=== PATIENT | male | born 1950 | race Caucasian/White ===

== ENCOUNTER 2019-11-08 03:40 | Inpatient (IN) | payer MEDICARE ==
[~2019-11-08] VITALS: Ht 172.7 cm; Wt 104.1 kg
[2019-11-08] MEDS ORDERED: WARF3TAB50 PO ×2 (05:13)
[2019-11-08] MEDS ORDERED: METF10007 PO (05:13)
[2019-11-08] MEDS ORDERED: CETI10TA16 PO (05:13)
[2019-11-08] MEDS ORDERED: FAMO20TA5 PO (05:13)
[2019-11-08] MEDS ORDERED: WARF2TAB96 PO ×3 (05:13)
[2019-11-08] MEDS ORDERED: METO50TA29 PO (05:13)
[2019-11-08] MEDS ORDERED: FURO40TA4 PO (05:13)
[2019-11-08] MEDS ORDERED: LISI10TA2 PO (05:13)
[2019-11-08] MEDS ORDERED: SIMV40TA18 PO (05:13)
[2019-11-08] MEDS ORDERED: TRIA15CR50 TP (05:13)
[2019-11-08] MEDS ORDERED: ASPI-630 PO (05:13)
[2019-11-08] MEDS ORDERED: GABA-586 PO ×2 (05:13)
[2019-11-08] MEDS ORDERED: OLAN5TAB5 PO (05:38)
[2019-11-08 06:23] VITALS: BP 137/75
[2019-11-08] MEDS ORDERED: METHYL SALICYLATE/MENTHOL TOPICAL OINTMENT 57GM TUBE. TP PRN (06:30)
[2019-11-08] MEDS ORDERED: GABAPENTIN 300 MG CAPSULE. PO PRN (06:30)
[2019-11-08] MEDS ORDERED: ACETAMINOPHEN 325 MG TABLET PO PRN (06:30)
[2019-11-08] MEDS ORDERED: MAGNESIUM HYDROXIDE 2,400 MG/30 ML ORAL.SUSP. PO PRN (06:30)
[2019-11-08] MEDS ORDERED: MAG HYDROX/AL HYDROX/SIMETH 30 ML ORAL.SUSP PO PRN (06:30)
[2019-11-08] MEDS ORDERED: TRIAMCINOLONE ACETONIDE 0.1% TOPICAL CREAM 15GM TUBE. TP PRN (07:15)
[2019-11-08 09:16] VITALS: BP 176/98
[2019-11-08 09:24] LABS: BASO % 1 % (0-3); EOS # 0.2 x10^3/uL (0.0-0.7); EOS % 3 % (0-3); HEMOGLOBIN 14.9 g/dL (13.0-17.5); LYMPH # 0.7 x10^3/uL (1.0-4.8); LYMPH % 11 % (24-48); MEAN CORPUSCULAR HEMOGLOBIN 31 pg (25-35); MEAN CORPUSCULAR HGB CONC 33 g/dL (31-37); MEAN CORPUSCULAR VOLUME 95 fL (79-100); MONO # 0.5 x10^3/uL (0.0-1.1); MONO % 7 % (0-9); NEUT # 5.4 x10^3uL (1.8-7.7); NEUT % 79 % (31-73); PLATELET COUNT 149 x10^3/uL (140-400); RED BLOOD COUNT 4.75 x10^6/uL (4.30-5.70); RED CELL DISTRIBUTION WIDTH 14.5 % (11.5-14.5); WHITE BLOOD COUNT 6.8 x10^3/uL (4.0-11.0)
[2019-11-08] MEDS: METOPROLOL SUCC 24HR ER 50 MG TAB.ER.24H. PO SCH (09:30)
[2019-11-08] MEDS: FAMOTIDINE 20 MG TABLET PO SCH ×2 (09:30→20:42)
[2019-11-08] MEDS: metFORMIN 500 MG TABLET PO SCH ×2 (09:30→17:29)
[2019-11-08] MEDS: GABAPENTIN 300 MG CAPSULE. PO SCH ×4 (09:31→20:42)
[2019-11-08] MEDS: FUROSEMIDE 40 MG TABLET PO SCH (09:31)
[2019-11-08] MEDS: ASPIRIN 81 MG TAB.CHEW PO SCH (09:31)
[2019-11-08] MEDS: CETIRIZINE HCL 10 MG TABLET PO SCH (09:31)
[2019-11-08 09:45] LABS: ALBUMIN 3.5 g/dL (3.4-5.0); ALBUMIN/GLOBULIN RATIO 0.9 (1.0-1.7); CALCIUM 8.5 mg/dL (8.5-10.1); GFR 73.9; MAGNESIUM 1.9 mg/dL (1.8-2.4); POTASSIUM 3.7 mmol/L (3.5-5.1); TOTAL PROTEIN 7.5 g/dL (6.4-8.2)
[2019-11-08 13:17] LABS: THYROID STIM HORMONE (TSH) 2.543 uIU/mL (0.358-3.740)
[2019-11-08] MEDS ORDERED: WARFARIN 3 MG TABLET. PO SCH (16:00)
[2019-11-08] MEDS ORDERED: WARFARIN 5 MG TABLET. PO ONE (16:00)
[2019-11-08 16:08] VITALS: BP 136/92
[2019-11-08] MEDS: LISINOPRIL 10 MG TABLET PO SCH (17:31)
[2019-11-08] MEDS: SIMVASTATIN 40 MG TABLET. PO SCH (20:42)
--- NOTE | 2019-11-08 21:45 | PDOC ---
Exam Note: Mazin Note: Please also refer to the separate dictated note~for this date of service dictated separately. Discussed the patient with Nursing staff reviewed the chart.~Reviewed interim history and current functioning. Reviewed vital signs,~Labs/ Radiology~and current medications noted below. Continue current treatment with the changes noted in the dictated addendum note Assessment: Vital Signs/I&O: Vital Signs Date Time Temp Pulse Resp B/P (MAP) Pulse Ox O2 Delivery O2 Flow Rate FiO2 11/08/19 17:31 85 136/92 11/08/19 16:08 97.6 16 97 I & O 11/07/19 11/07/19 11/08/19 15:00 23:00 07:00 Intake Total 0 ml Balance 0 ml Labs: Laboratory Tests Test 11/08/19 09:09 White Blood Count 6.8 x10^3/uL (4.0-11.0) Red Blood Count 4.75 x10^6/uL (4.30-5.70) Hemoglobin 14.9 g/dL (13.0-17.5) Hematocrit 45.0 % (39.0-53.0) Mean Corpuscular Volume 95 fL (79-100) Mean Corpuscular Hemoglobin 31 pg (25-35) Mean Corpuscular Hemoglobin Concent 33 g/dL (31-37) Red Cell Distribution Width 14.5 % (11.5-14.5) Platelet Count 149 x10^3/uL (140-400) Neutrophils (%) (Auto) 79 % (31-73) H Lymphocytes (%) (Auto) 11 % (24-48) L Monocytes (%) (Auto) 7 % (0-9) Eosinophils (%) (Auto) 3 % (0-3) Basophils (%) (Auto) 1 % (0-3) Neutrophils # (Auto) 5.4 x10^3uL (1.8-7.7) Lymphocytes # (Auto) 0.7 x10^3/uL (1.0-4.8) L Monocytes # (Auto) 0.5 x10^3/uL (0.0-1.1) Eosinophils # (Auto) 0.2 x10^3/uL (0.0-0.7) Basophils # (Auto) 0.0 x10^3/uL (0.0-0.2) Prothrombin Time 11.6 SEC (9.4-11.4) H Prothrombin Time INR 1.1 (0.9-1.1) Sodium Level 141 mmol/L (136-145) Potassium Level 3.7 mmol/L (3.5-5.1) Chloride Level 103 mmol/L (98-107) Carbon Dioxide Level 27 mmol/L (21-32) Anion Gap 11 (6-14) Blood Urea Nitrogen 18 mg/dL (8-26) Creatinine 1.0 mg/dL (0.7-1.3) Estimated GFR (Cockcroft-Gault) 73.9 BUN/Creatinine Ratio 18 (6-20) Glucose Level 222 mg/dL (70-99) H Calcium Level 8.5 mg/dL (8.5-10.1) Magnesium Level 1.9 mg/dL (1.8-2.4) Iron Level 72 ug/dL (65-175) Total Iron Binding Capacity 274 ug/dL (250-450) Iron Saturation 26 % (15-34) Total Bilirubin 1.0 mg/dL (0.2-1.0) Aspartate Amino Transferase (AST) 25 U/L (15-37) Alanine Aminotransferase (ALT) 23 U/L (16-63) Alkaline Phosphatase 97 U/L (46-116) Total Protein 7.5 g/dL (6.4-8.2) Albumin 3.5 g/dL (3.4-5.0) Albumin/Globulin Ratio 0.9 (1.0-1.7) L Triglycerides Level 57 mg/dL (0-150) Cholesterol Level 124 mg/dL (0-200) LDL Cholesterol, Calculated 71 mg/dL (0-100) VLDL Cholesterol, Calculated 11 mg/dL (0-40) Non-HDL Cholesterol Calculated 82 mg/dL (0-129) HDL Cholesterol 42 mg/dL (40-60) Cholesterol/HDL Ratio 2.0 Vitamin B12 Level 298 pg/mL (247-911) 25-Hydroxy Vitamin D Total 28.6 ng/mL (30-100) L Thyroid Stimulating Hormone (TSH) 2.543 uIU/mL (0.358-3.740) Treponema pallidum Antibody Nonreactive (Nonreactive) Current Medications: Meds: Current Medications Medications (Trade) Dose Ordered Sig/Svetlana Route PRN Reason Start Time Stop Time Status Last Admin Dose Admin Aspirin (Children'S Aspirin) 81 mg DAILY PO 11/08/19 09:00 11/08/19 09:31 Cetirizine HCl (ZyrTEC) 10 mg DAILY PO 11/08/19 09:00 11/08/19 09:31 Famotidine (Pepcid) 20 mg BID PO 11/08/19 09:00 11/08/19 20:42 Furosemide (Lasix) 40 mg DAILY PO 11/08/19 09:00 11/08/19 09:31 Gabapentin (Neurontin) 300 mg QID PO 11/08/19 09:00 11/08/19 20:42 Lisinopril (Prinivil) 10 mg DAILYWSUP PO 11/08/19 17:00 11/08/19 17:31 Metoprolol Succinate (Toprol Xl) 50 mg DAILY PO 11/08/19 09:00 11/08/19 09:30 Simvastatin (Zocor) 40 mg HS PO 11/08/19 21:00 11/08/19 20:42 Metformin HCl (Glucophage) 1,000 mg BIDWMEALS PO 11/08/19 08:00 11/08/19 17:29 Warfarin Sodium (Coumadin Per Pharmacy) 1 each PRN DAILY PRN MC SEE COMMENTS 11/08/19 06:30 11/08/19 14:03 Warfarin Sodium (Coumadin) 5 mg 1X WARF ONCE PO 11/08/19 16:00 11/08/19 16:01 DC 11/08/19 17:30 I have reviewed the current psychotropics carefully including drug interactions. Risk benefit ratio favors no change other than as noted in my dictated progress note. Diagnosis: Problems: (1) Anxiety disorder (2) Psychosis, atypical (3) Impulse control disorder MARIANN CUEVAS MD Nov 08, 2019 21:45
[2019-11-08 23:07] LABS: HEMOGLOBIN A1C 7.3 % (4.8-5.6)
--- NOTE | 2019-11-09 01:24 | CONS ---
DATE OF CONSULTATION: 11/08/2019 REASON FOR CONSULTATION: Medical management. HISTORY OF PRESENT ILLNESS: The patient is a 69-year-old male patient who lives at home and who was evaluated at [facility] Emergency Room on account of destroying his house. He broke his window and threw things into his yard. He told his friend, he gets these urges and when I questioned him is that the demons were somehow influencing him. He however, denied any suicidal or homicidal ideation; however, he was unable to be specific about what has led him to do this other than the fact that his house has been possessed by demons. He apparently has had a gun and apparently has had suicidal ideation before and therefore, the patient was evaluated and [facility] inpatient psychiatric stabilization. PAST MEDICAL HISTORY: Significant for hypertension and hyperlipidemia. He is known to have history of cerebrovascular accident, heart failure with reduced ejection fraction, class 2 obesity due to excessive calories, body mass index 36-39. He is also known to have type 2 diabetes with diabetic neuropathy, and bilateral lower extremity venous stasis. PAST SURGICAL HISTORY: Significant for suprapubic cystostomy and had cystoscopy with suprapubic cystostomy tube placement and transurethral resection of the prostate, cardiac catheterization. The patient was found to have moderate coronary artery disease with a high-grade 80% stenosis of the mid left anterior descending. Biopsy of the prostate and transrectal ultrasound. FAMILY HISTORY: Noncontributory. SOCIAL HISTORY: He is single, never , has no children. He does not smoke, does not drink alcohol. He is retired. 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 ALLERGIES: He has no known drug allergies. MEDICATIONS: He is currently on following medications: He is on cetirizine 10 mg once a day. He is on Coumadin 2 mg every , Thursday, Thursday and 3 mg every Thursday, Thursday, Thursday and 3 mg every Thursday, simvastatin 40 mg at bedtime, metoprolol succinate 50 mg once a day, lisinopril 10 mg once a day, aspirin 81 mg once a day, gabapentin 300 mg 4 times a day, olanzapine 2.5 mg every 2 hours as needed, furosemide 40 mg once a day, famotidine 20 mg twice a day, metformin 1000 mg twice a day, triamcinolone acetonide cream applied topically twice a day. He is also on Tylenol 650 mg every 4 hours as needed. REVIEW OF SYSTEMS: As per history of present illness. PHYSICAL EXAMINATION GENERAL: When I saw him this afternoon, he was sitting comfortably in his chair, in no apparent respiratory distress. There was no pallor, jaundice, cyanosis or thyromegaly. No jugular venous distention. No limb edema. VITAL SIGNS: His heart rate was 81, blood pressure was 137/75, temperature 97, respiratory rate was 18, and oxygen saturation 100% on room air. The rest of the clinical exam is unremarkable. LABORATORY DATA: Showed a white cell count 6800, hemoglobin 14.9, hematocrit 45, MCV 95, and platelet count of 149,000. His chemistry showed a serum sodium 141, potassium 3.7, chloride 103, bicarbonate 27, anion gap of 11, BUN 18, creatinine 1, estimated GFR was 74 mL per minute. His glucose was 122, calcium was 8.5, and magnesium was 1.9. Serum iron, TIBC and iron saturation are all consistent with anemia of chronic disease. Her total bilirubin, AST, ALT, alkaline phosphatase were normal. Total protein is 7.5 and albumin 3.5. Serum triglycerides were 57, total cholesterol 124, LDL cholesterol 71, VLDL was 11, HDL was 42 and the ratio 2. His vitamin B12 was 298 pg/mL. 25-hydroxy vitamin D is 28.6 and TSH was normal at 2.543. Her prothrombin time was 11.6, INR 1.1 and treponema pallidum antibodies were nonreactive. IMPRESSION: In summary, this is a 69-year-old male patient who was admitted on account of being delusional, psychotic. His friend brought him back to the Emergency Room as he broke his window, threw his belonging out through the window. He reportedly seeing and hearing the devil although he denied any suicidal or homicidal ideation. He said that the demons have somehow are influencing him, although indirectly, not talking to him directly. He apparently has multiple medical problems including chronic systolic congestive heart failure, history of cerebrovascular accident, hypertension, chronic bilateral lower extremity venous stasis, type 2 diabetes mellitus, diabetic neuropathy. He has enlarged prostate. He has also had overweight. Medically, the patient seems to be all in all stable. All his vital signs are within acceptable range as well as lab work. His vitamin D is low, so will replenish that and his vitamin B12, also borderline low at 198. I will obviously follow all his other lab works that are still pending at the time of this dictation and make any necessary recommendation. Thank you, Dr. Baum for allowing me to participate in the care of this patient. RAINE HSU MD DR: PAMELA/sofía JOB#: [id number] / [id number]
[2019-11-09 06:22] VITALS: BP 140/79
--- NOTE | 2019-11-09 09:47 | HP ---
ADMIT DATE: 11/08/2019 ADMISSION HISTORY AND EVALUATION This late entry date of service 11/08/2019 covers elements not covered in my initial note. I met with the patient evening of 11/08/2019. Previously discussed with Mitzy Humphreys, nursing information systems coordinator and Sunshine Smith RN after we received a referral from Emergency Room where the patient presented from home on account of worsening psychotic symptoms, agitation "throwing things, breaking windows, seeing demons delusional." He was convinced that his house was possessed. The patient's behaviors were deemed dangerous, unmanageable, had failed outpatient psychiatric interventions resulting in this referral. CHIEF COMPLAINT: "Yes, that happen, but I don't want to talk about it just now." The patient is anxious, very defensive initially refusing to talk whatsoever, but as we met over time, he was a little more open. I will have to develop further therapeutic relationship with him to elucidate more detail psychotic symptoms that resulting in this referral. HISTORY OF PRESENT ILLNESS: Reportedly, the patient has a history of worsening psychotic symptoms recently with mood swings, sleep and appetite changes, agitation, aggression, throwing things, breaking window, seeing demons, convinced that his house is possessed. He has been living by himself. He is single, never , with no children and denies any alcohol or substance abuse. He has had mood swings, worsening lately over the past several days for no apparent reason. PAST PSYCHIATRIC HISTORY: He was at [facility] many years ago and he was not very forthcoming about interim symptoms since then and outpatient followup for psychiatric reasons since then. No alcohol or drug abuse history noted. MEDICAL HISTORY: Positive for status post CVA, hypertension, bilateral lower extremity lymphedema, hyperlipidemia, type 2 diabetes mellitus, neuropathy, venous stasis, CHF, hematuria. ACCU-CHEKS: Daily. DIET: Regular. Takes medications whole, ambulates independently. ALLERGIES: Negative. CODE STATUS: Full code. CURRENT PSYCHOTROPICS: I had added Zyprexa 2.5 mg q. 2 hours p.r.n. psychosis, agitation following admission, max 10 mg in 24 hours. Still we can get background historical information and records from [facility]. He is also on Coumadin. PT/INR to be followed by pharmacy. FAMILY HISTORY: Noncontributory. 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 No alcohol or drug abuse, physical, sexual or elder abuse history is noted. He is not known to be a perpetrator. REACTION TO HOSPITALIZATION: The patient accepting of it. ASSETS: Cognitively reasonably intact. MENTAL STATUS EXAMINATION: The patient was seen individually evening of 11/08/2019 in his room. Initially he is extremely dismissive, anxious, delusional, suspicious, not wanting to talk very much, but then more open as I met with him. Speech is coherent, has some latency, rapid at times. Abstraction fair, computation impaired, language function intact, attention span short. He is quite paranoid, suspicious, withdrawn at times. No active suicidal or homicidal ideation. LABORATORY DATA: Reviewed. IMPRESSION: Major depressive disorder with psychotic features versus bipolar disorder, mixed with psychotic features. Psychotic disorder, unspecified, rule out schizoaffective disorder, bipolar type, mixed with psychotic features. Rest diagnoses as above. PLAN: Admit to Geropsychiatry Unit at [facility]. I will see the patient daily individually from a psychiatric standpoint. Medical followup with Dr. Chapin. We will get past psychiatric records from [facility] and any of the interim psychiatric records including from the [facility] in [place] and his primary care physician to corroborate his diagnosis and help with further treatment planning. We will adjust his psychotropics thereafter and post baseline assessment. Estimated length of stay 10-12 days. DISPOSITION: Plans discharge home with outpatient followup at [facility] in [place], [place]. MAN Juliette CUEVAS MD DR: DEEDEE/sofía JOB#: [id number] / [id number]
[2019-11-09] MEDS: FAMOTIDINE 20 MG TABLET PO SCH ×2 (09:57→20:39)
[2019-11-09] MEDS: metFORMIN 500 MG TABLET PO SCH ×2 (09:58→17:48)
[2019-11-09] MEDS: GABAPENTIN 300 MG CAPSULE. PO SCH ×4 (09:58→20:40)
[2019-11-09] MEDS: METOPROLOL SUCC 24HR ER 50 MG TAB.ER.24H. PO SCH (09:58)
[2019-11-09] MEDS: FUROSEMIDE 40 MG TABLET PO SCH (09:58)
[2019-11-09] MEDS: ASPIRIN 81 MG TAB.CHEW PO SCH (09:58)
[2019-11-09] MEDS: CETIRIZINE HCL 10 MG TABLET PO SCH (09:59)
[2019-11-09] MEDS: CHOLECALCIFEROL (VITAMIN D3) 50,000 UNIT CAPSULE PO SCH (09:59)
[2019-11-09 15:44] VITALS: BP 98/67
[2019-11-09] MEDS ORDERED: WARFARIN 5 MG TABLET. PO ONE (16:00)
[2019-11-09] MEDS ORDERED: WARFARIN 3 MG TABLET. PO SCH (16:00)
[2019-11-09] MEDS ORDERED: WARFARIN 2 MG TABLET. PO SCH (16:00)
[2019-11-09] MEDS ORDERED: CHOLECALCIFEROL (VITAMIN D3) 50,000 UNIT CAPSULE PO SCH (16:15)
[2019-11-09] MEDS: LISINOPRIL 10 MG TABLET PO SCH (17:49)
--- NOTE | 2019-11-09 18:36 | RAD ---
CT head without contrast PQRS statement: CT scans at this facility use dose reduction including either automated exposure control, iterative reconstructions, and /or weight based radiation dosing via mA and kV modification when appropriate to reduce radiation dose to as low as reasonably achievable. HISTORY: Mental status change. Altered mental status. FINDINGS: There is mild generalized brain atrophy. No intracranial hemorrhage, mass, hydrocephalus or infarction. No acute ischemic change evident. Orbits, mastoids, paranasal sinuses and bones are unremarkable. IMPRESSION: No acute abnormality. Electronically signed by: Uriel Mayen MD (11/09/2019 6:33 PM) [id number]
[2019-11-09] MEDS: SIMVASTATIN 40 MG TABLET. PO SCH (20:39)
--- NOTE | 2019-11-09 21:58 | PDOC ---
Exam Note: Mazin Note: Please also refer to the separate dictated note~for this date of service dictated separately.~Patient seen individually. Discussed the patient with Nursing staff reviewed the chart.~Reviewed interim history and current functioning. Reviewed vital signs,~Labs/ Radiology~and current medications noted below. Continue current treatment with the changes noted in the dictated addendum note Assessment: Vital Signs/I&O: Vital Signs Date Time Temp Pulse Resp B/P (MAP) Pulse Ox O2 Delivery O2 Flow Rate FiO2 11/09/19 17:49 82 98/67 11/09/19 15:44 97.6 16 94 I & O 11/08/19 11/08/19 11/09/19 15:00 23:00 07:00 Intake Total 840 ml 120 ml Balance 840 ml 120 ml Labs: Laboratory Tests Test 11/09/19 08:55 Prothrombin Time 12.4 SEC (9.4-11.4) H Prothrombin Time INR 1.2 (0.9-1.1) H Current Medications: Meds: Current Medications Medications (Trade) Dose Ordered Sig/Svetlana Route PRN Reason Start Time Stop Time Status Last Admin Dose Admin Vitamin D (Vitamin D3) 50,000 unit WEEKLY PO 11/09/19 09:00 11/09/19 09:59 Warfarin Sodium (Coumadin) 5 mg 1X WARF ONCE PO 11/09/19 16:00 11/09/19 16:01 DC 11/09/19 17:48 I have reviewed the current psychotropics carefully including drug interactions. Risk benefit ratio favors no change other than as noted in my dictated progress note. Diagnosis: Problems: (1) Anxiety disorder (2) Psychosis, atypical (3) Impulse control disorder (4) Bipolar disorder with psychotic features (5) Major depressive disorder with psychotic features MARIANN CUEVAS MD Nov 09, 2019 21:58
[2019-11-10] MEDS: traZODone 50 MG TABLET. PO PRN ×2 (01:51→19:51)
[2019-11-10] MEDS: CETIRIZINE HCL 10 MG TABLET PO SCH (09:01)
[2019-11-10] MEDS: GABAPENTIN 300 MG CAPSULE. PO SCH ×4 (09:01→19:52)
[2019-11-10] MEDS: ASPIRIN 81 MG TAB.CHEW PO SCH (09:01)
[2019-11-10] MEDS: FAMOTIDINE 20 MG TABLET PO SCH ×2 (09:01→19:52)
[2019-11-10] MEDS: metFORMIN 500 MG TABLET PO SCH ×2 (09:01→16:53)
[2019-11-10] MEDS: METOPROLOL SUCC 24HR ER 50 MG TAB.ER.24H. PO SCH (09:02)
[2019-11-10] MEDS: FUROSEMIDE 40 MG TABLET PO SCH (09:02)
[2019-11-10] MEDS: ZIPRASIDONE 20 MG CAPSULE. PO SCH (09:17)
[2019-11-10 09:38] VITALS: BP 103/58
[2019-11-10] MEDS ORDERED: WARFARIN 5 MG TABLET. PO ONE (16:00)
[2019-11-10] MEDS ORDERED: WARFARIN 2 MG TABLET. PO SCH (16:00)
[2019-11-10 16:39] VITALS: BP 127/85
[2019-11-10] MEDS: LISINOPRIL 10 MG TABLET PO SCH (16:53)
[2019-11-10] MEDS: SIMVASTATIN 40 MG TABLET. PO SCH (19:52)
--- NOTE | 2019-11-10 21:48 | PDOC ---
Exam Note: Mazin Note: Please also refer to the separate dictated note~for this date of service dictated separately.~Patient seen individually. Discussed the patient with Nursing staff reviewed the chart.~Reviewed interim history and current functioning. Reviewed vital signs,~Labs/ Radiology~and current medications noted below. Continue current treatment with the changes noted in the dictated addendum note Assessment: Vital Signs/I&O: Vital Signs Date Time Temp Pulse Resp B/P (MAP) Pulse Ox O2 Delivery O2 Flow Rate FiO2 11/10/19 16:53 84 127/85 11/10/19 16:39 97.7 18 98 I & O 11/09/19 11/09/19 11/10/19 15:00 23:00 07:00 Intake Total 480 ml 360 ml Balance 480 ml 360 ml Labs: Laboratory Tests Test 11/10/19 07:02 Prothrombin Time 14.4 SEC (9.4-11.4) H Prothrombin Time INR 1.4 (0.9-1.1) H Current Medications: Meds: Current Medications Medications (Trade) Dose Ordered Sig/Svetlana Route PRN Reason Start Time Stop Time Status Last Admin Dose Admin Ziprasidone (Geodon) 20 mg DAILY PO 11/10/19 09:00 11/11/19 09:01 11/10/19 09:17 Warfarin Sodium (Coumadin) 5 mg 1X WARF ONCE PO 11/10/19 16:00 11/10/19 16:01 DC 11/10/19 16:53 I have reviewed the current psychotropics carefully including drug interactions. Risk benefit ratio favors no change other than as noted in my dictated progress note. Diagnosis: Problems: (1) Major depress, sev w/ psych (2) Bipolar disorder with psychotic features (3) Major depressive disorder with psychotic features (4) Anxiety disorder (5) Psychosis, atypical (6) Impulse control disorder MARIANN CUEVAS MD Nov 10, 2019 21:48
[2019-11-11 05:04] VITALS: BP 127/82
[2019-11-11] MEDS: FUROSEMIDE 40 MG TABLET PO SCH (07:57)
[2019-11-11] MEDS: metFORMIN 500 MG TABLET PO SCH ×2 (07:57→17:40)
[2019-11-11] MEDS: METOPROLOL SUCC 24HR ER 50 MG TAB.ER.24H. PO SCH (07:57)
[2019-11-11] MEDS: ASPIRIN 81 MG TAB.CHEW PO SCH (07:57)
[2019-11-11] MEDS: CETIRIZINE HCL 10 MG TABLET PO SCH (07:57)
[2019-11-11] MEDS: GABAPENTIN 300 MG CAPSULE. PO SCH ×4 (07:58→21:00)
[2019-11-11] MEDS: FAMOTIDINE 20 MG TABLET PO SCH ×2 (07:58→21:00)
[2019-11-11] MEDS: ZIPRASIDONE 20 MG CAPSULE. PO SCH (07:58)
[2019-11-11 15:49] VITALS: BP 127/80
[2019-11-11] MEDS ORDERED: WARFARIN 3 MG TABLET. PO ONE (16:00)
[2019-11-11] MEDS: LISINOPRIL 10 MG TABLET PO SCH (17:39)
[2019-11-11] MEDS: SIMVASTATIN 40 MG TABLET. PO SCH (21:00)
[2019-11-11] MEDS: MIRTAZAPINE 7.5 MG TABLET. PO SCH (21:00)
[2019-11-11] MEDS: traZODone 50 MG TABLET. PO PRN (21:01)
[2019-11-11] MEDS: DIVALPROEX ER 500 MG TAB.ER.24H PO SCH (21:01)
--- NOTE | 2019-11-11 21:33 | PDOC ---
Exam Note: Mazin Note: Please also refer to the separate dictated note~for this date of service dictated separately.~Patient seen individually. Discussed the patient with Nursing staff reviewed the chart.~Reviewed interim history and current functioning. Reviewed vital signs,~Labs/ Radiology~and current medications noted below. Continue current treatment with the changes noted in the dictated addendum note Assessment: Vital Signs/I&O: Vital Signs Date Time Temp Pulse Resp B/P (MAP) Pulse Ox O2 Delivery O2 Flow Rate FiO2 11/11/19 17:39 92 127/80 11/11/19 15:49 97.7 18 100 11/11/19 05:04 Room Air I & O 11/10/19 11/10/19 11/11/19 15:00 23:00 07:00 Intake Total 720 ml 0 ml 120 ml Balance 720 ml 0 ml 120 ml Labs: Laboratory Tests Test 11/11/19 06:55 Prothrombin Time 18.3 SEC (9.4-11.4) H Prothrombin Time INR 1.8 (0.9-1.1) H Current Medications: Meds: Current Medications Medications (Trade) Dose Ordered Sig/Svetlana Route PRN Reason Start Time Stop Time Status Last Admin Dose Admin Warfarin Sodium (Coumadin) 3 mg 1X WARF ONCE PO 11/11/19 16:00 11/11/19 16:01 DC 11/11/19 17:40 Divalproex Sodium (Depakote Er) 500 mg QHS PO 11/11/19 21:00 11/11/19 21:01 Mirtazapine (Remeron) 7.5 mg QHS PO 11/11/19 21:00 11/11/19 21:00 I have reviewed the current psychotropics carefully including drug interactions. Risk benefit ratio favors no change other than as noted in my dictated progress note. Diagnosis: Problems: (1) Major depress, sev w/ psych (2) Bipolar disorder with psychotic features (3) Major depressive disorder with psychotic features (4) Anxiety disorder (5) Psychosis, atypical (6) Impulse control disorder MARIANN CUEVAS MD Nov 11, 2019 21:33
--- NOTE | 2019-11-11 23:47 | PN ---
DATE: 11/09/2019 PSYCHIATRIC PROGRESS NOTE This late entry of 11/09/2019 covers the elements not covered in my initial note. SUBJECTIVE: I met with the patient at length in the evening of 11/09/2019. Per BENITA Hampton, the patient has been very paranoid. He slept 4 hours previous night. He was making statements, "I know who you are. I need my operation done. Otherwise, shit is going to go down." Reportedly, he threw his food, he has been agitated, aggressive with marked mood lability. He threw his food at breakfast and lunch, refused showers the day before. 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 We will check a CT head and get his records from [facility] and from [facility] at the [facility]. REVIEW OF SYSTEMS: No CV, , pulmonary, eye, ENT system symptoms on review. Reliability poor as he is quite nonspecific in answering questions. MENTAL STATUS EXAM: Oriented to himself and situation. Speech coherent, rapid, loud at times. Abstraction fair, computation impaired, language function intact, attention span short. Mood and affect remains labile. He is quite paranoid. IMPRESSION: Probable schizoaffective disorder, bipolar type, mixed with psychotic features versus schizophrenia, chronic, undifferentiated versus paranoid with acute exacerbation; anxiety disorder, unspecified; impulse control disorder, unspecified. PLAN: Start Geodon 20 mg once a day for 2 days, then 20 mg twice a day. Check EKG before this. Check CT head as noted. Add trazodone 50 mg at bedtime p.r.n., may repeat x 1 for insomnia. Continue rest unchanged for now. He has a history of CVA and that is why we are avoiding Risperdal despite his significant psychotic symptoms. MARIANN CUEVAS MD DR: DEEDEE/sofía JOB#: [id number] / [id number]
[2019-11-12] MEDS: metFORMIN 500 MG TABLET PO SCH ×2 (08:00→17:40)
[2019-11-12] MEDS: FAMOTIDINE 20 MG TABLET PO SCH ×2 (09:00→19:58)
[2019-11-12] MEDS: METOPROLOL SUCC 24HR ER 50 MG TAB.ER.24H. PO SCH (09:00)
[2019-11-12] MEDS: ZIPRASIDONE 20 MG CAPSULE. PO SCH ×2 (09:00→19:58)
[2019-11-12] MEDS: GABAPENTIN 300 MG CAPSULE. PO SCH ×4 (09:00→19:58)
[2019-11-12] MEDS: ASPIRIN 81 MG TAB.CHEW PO SCH (09:00)
[2019-11-12] MEDS: FUROSEMIDE 40 MG TABLET PO SCH (09:00)
[2019-11-12] MEDS: CETIRIZINE HCL 10 MG TABLET PO SCH (09:00)
--- NOTE | 2019-11-12 09:09 | PN ---
DATE: 11/11/2019 This late entry 11/11/2019 covers elements not covered in my initial note. SUBJECTIVE: I met with the patient evening of 11/11/2019. The patient slept 2 hours previous night. He has had a decent day per nursing staff, but in the evening, he was in the [facility], which is where I met with him. He is extremely agitated, had tripped over a very heavy chair and as I was talking to him and he pulled the papers out of my hand including the nursing report sheet, threw them all over "you don?t need it, get out." Quite labile, aggressive. He threw his supper and then threw his glasses and then in the morning, was chanting that demons were controlling him. REVIEW OF SYSTEMS: Vague somatic symptoms. No CV, , pulmonary, eye system symptoms on review. MENTAL STATUS EXAM: Oriented to himself and situation. Speech coherent, rapid at times. Abstraction fair, computation impaired, language function intact, attention span short. Mood and affect labile. LABORATORY DATA: Reviewed. IMPRESSION: Schizoaffective disorder, bipolar type, mixed with psychotic features versus schizophrenia, chronic paranoid with acute exacerbation; anxiety disorder, unspecified; impulse control disorder, unspecified. PLAN: We had a lengthy review of his psychotropics. We will continue to gradually increase the Geodon. Maintain Zyprexa p.r.n., use Remeron 7.5 mg at bedtime to help with insomnia. Continue trazodone at bedtime p.r.n. Start Depakote ER 500 mg p.o. at bedtime as a mood stabilizer. Check CBC, CMP, valproic acid level in 3 days. MAN Juliette CUEVAS MD DR: DEEDEE/sofía JOB#: [id number] / [id number]
--- NOTE | 2019-11-12 09:11 | PN ---
DATE: 11/10/2019 PSYCHIATRIC PROGRESS NOTE This late entry 11/10/2019 covers the elements not covered in my initial note. SUBJECTIVE: I met with the patient evening of 11/10/2019 and staffed at treatment team meeting with the entire team in the morning. Reviewed his history at length. Sleeping 2 hours average 3-1/4 hours previous night. Previous evening, he was agitated, aggressive, disruptive, threw his walker and then the water on the floor, talking about demons controlling him. He has to be in the [place] to reduce stimuli prevent him hurting others and himself. REVIEW OF SYSTEMS: No CV, , pulmonary, eye, ENT system symptoms on review. MENTAL STATUS EXAM: Oriented to himself and situation. Speech coherent, rapid at times. Abstraction fair, computation impaired, language function intact. Mood and affect remains labile. LABORATORY DATA: Reviewed. IMPRESSION: Schizophrenia, chronic paranoid with acute exacerbation, impulse control disorder; anxiety disorder, unspecified. PLAN: Continue to gradually increase the Geodon as an atypical antipsychotic, may consider Depakote as a mood stabilizer. A CT head is negative. He refused the EKG, we will repeat it whenever we are able to, rest unchanged for now. EKG is being done as he is on the Geodon. MARIANN CUEVAS MD DR: DEEDEE/sofía JOB#: [id number] / [id number]
[2019-11-12 13:55] VITALS: BP 114/72
[2019-11-12] MEDS ORDERED: WARFARIN 2.5 MG TABLET. PO ONE (16:00)
[2019-11-12 16:33] VITALS: BP 106/74
[2019-11-12] MEDS: LISINOPRIL 10 MG TABLET PO SCH (17:41)
[2019-11-12] MEDS: SIMVASTATIN 40 MG TABLET. PO SCH (19:58)
[2019-11-12] MEDS: traZODone 50 MG TABLET. PO PRN ×2 (19:58→21:42)
[2019-11-12] MEDS: DIVALPROEX ER 500 MG TAB.ER.24H PO SCH (19:58)
[2019-11-12] MEDS: MIRTAZAPINE 7.5 MG TABLET. PO SCH (19:58)
--- NOTE | 2019-11-12 21:37 | PN ---
DATE: 11/12/2019 SUBJECTIVE: The patient was seen today, met with the staff, chart reviewed and also covering for Dr. Baum. Staff reports increased behavior problems. He continues to be irritable, angry, mood swings, history of destruction of property prior to coming here and also being delusional, paranoid, and having visual hallucinations. OBSERVATION: VITAL SIGNS: Temperature 97.6, blood pressure 114/72, pulse 80, respirations 20, and O2 sat 100%. GENERAL: Slept about 7 hours last night. The patient's appetite is normal. LABORATORY DATA: The patient's lab reviewed. MEDICATIONS: The patient's current medications include Geodon 20 mg twice a day, mirtazapine 7.5 mg at night, Depakote 500 mg at night, trazodone 50 mg at night p.r.n., also olanzapine 2.5 mg q.2 hours p.r.n., gabapentin 300 mg q.i.d. The patient is not presenting with any major physical complaints at this time. ASSESSMENT: Major depression with psychotic features, rule out schizoaffective disorder, bipolar type. PLAN: Continue with the current treatment plan. LENGTH OF STAY: 5 days. BENY MILAN MD DR: KADY/sofía JOB#: [id number] / [id number]
[2019-11-13 05:33] VITALS: BP 92/59
[2019-11-13] MEDS: ZIPRASIDONE 20 MG CAPSULE. PO SCH ×2 (08:36→19:56)
[2019-11-13] MEDS: metFORMIN 500 MG TABLET PO SCH ×2 (08:36→17:42)
[2019-11-13] MEDS: ASPIRIN 81 MG TAB.CHEW PO SCH (08:36)
[2019-11-13] MEDS: CETIRIZINE HCL 10 MG TABLET PO SCH (08:37)
[2019-11-13] MEDS: METOPROLOL SUCC 24HR ER 50 MG TAB.ER.24H. PO SCH (08:37)
[2019-11-13] MEDS: GABAPENTIN 300 MG CAPSULE. PO SCH ×4 (08:38→19:56)
[2019-11-13] MEDS: NYSTATIN TOPICAL POWDER 15GM BOTTLE. TP SCH ×2 (08:38→19:56)
[2019-11-13] MEDS: FUROSEMIDE 40 MG TABLET PO SCH (08:38)
[2019-11-13] MEDS: FAMOTIDINE 20 MG TABLET PO SCH ×2 (08:38→19:56)
[2019-11-13 15:53] VITALS: BP 138/74
[2019-11-13] MEDS ORDERED: WARFARIN 2 MG TABLET. PO SCH (16:00)
[2019-11-13] MEDS: LISINOPRIL 10 MG TABLET PO SCH (17:43)
[2019-11-13] MEDS: AMMONIUM LACTATE 12% TOPICAL LOTION 226GM BOTTLE. TP SCH (19:56)
[2019-11-13] MEDS: traZODone 50 MG TABLET. PO PRN (19:56)
[2019-11-13] MEDS: DIVALPROEX ER 500 MG TAB.ER.24H PO SCH (19:56)
[2019-11-13] MEDS: SIMVASTATIN 40 MG TABLET. PO SCH (19:56)
[2019-11-13] MEDS: MIRTAZAPINE 7.5 MG TABLET. PO SCH (19:56)
--- NOTE | 2019-11-13 23:31 | PN ---
DATE: 11/13/2019 SUBJECTIVE: The patient was seen today, met with the staff, chart reviewed and also covering for Dr. Baum. Staff reports episodes of increased anxiety, agitation, also poor impulse control, threw med cup and water last evening. Otherwise, no other major behavior problems. The patient is compliant with the medications. OBSERVATION: VITAL SIGNS: Temperature 97.4, blood pressure 92/59, pulse 72, respirations 20, O2 sat 96%. Slept about 2 hours last night. The patient's medications reviewed. GENERAL: The patient's appetite is normal. The patient denies of any physical complaints. MEDICATIONS: The patient's current medications include Geodon 20 mg b.i.d. p.o., mirtazapine 7.5 mg at night, Depakote 500 mg at night, trazodone 50 mg at night p.r.n. and also olanzapine 2.5 mg q. 2 hours p.r.n. The patient is also on gabapentin 300 mg q.i.d. p.o. ASSESSMENT: 1. Major depression with psychotic features. 2. Rule out schizoaffective disorder, bipolar type. PLAN: Continue with the current treatment plan. LENGTH OF STAY: 4-5 days. BENY MILAN MD DR: KADY/sofía JOB#: [id number] / [id number]
[2019-11-14 06:02] VITALS: BP 113/68
[2019-11-14 07:40] LABS: BASO # 0.1 x10^3/uL (0.0-0.2); BASO % 1 % (0-3); EOS # 0.3 x10^3/uL (0.0-0.7); EOS % 5 % (0-3); HEMATOCRIT 41.4 % (39.0-53.0); HEMOGLOBIN 13.7 g/dL (13.0-17.5); LYMPH # 1.1 x10^3/uL (1.0-4.8); LYMPH % 17 % (24-48); MEAN CORPUSCULAR HEMOGLOBIN 31 pg (25-35); MEAN CORPUSCULAR HGB CONC 33 g/dL (31-37); MEAN CORPUSCULAR VOLUME 94 fL (79-100); MONO # 0.6 x10^3/uL (0.0-1.1); MONO % 10 % (0-9); NEUT # 4.5 x10^3uL (1.8-7.7); NEUT % 68 % (31-73); PLATELET COUNT 163 x10^3/uL (140-400); RED CELL DISTRIBUTION WIDTH 14.9 % (11.5-14.5); WHITE BLOOD COUNT 6.6 x10^3/uL (4.0-11.0)
[2019-11-14 08:00] LABS: ALBUMIN 2.9 g/dL (3.4-5.0); ALBUMIN/GLOBULIN RATIO 0.8 (1.0-1.7); ALK PHOS 80 U/L (46-116); ALT (SGPT) 17 U/L (16-63); ANION GAP 10 (6-14); AST (SGOT) 16 U/L (15-37); BLOOD UREA NITROGEN 32 mg/dL (8-26); BUN/CREATININE RATIO 23 (6-20); CALCIUM 8.3 mg/dL (8.5-10.1); CARBON DIOXIDE 28 mmol/L (21-32); CHLORIDE 106 mmol/L (98-107); CREATININE 1.4 mg/dL (0.7-1.3); GFR 50.1; GLUCOSE 128 mg/dL (70-99); SODIUM 144 mmol/L (136-145); TOTAL BILIRUBIN 0.3 mg/dL (0.2-1.0); TOTAL PROTEIN 6.4 g/dL (6.4-8.2)
[2019-11-14 08:09] LABS: VAL ACID 28 mcg/mL (50-100)
[2019-11-14] MEDS: FAMOTIDINE 20 MG TABLET PO SCH ×2 (08:12→20:12)
[2019-11-14] MEDS: FUROSEMIDE 40 MG TABLET PO SCH (08:13)
[2019-11-14] MEDS: ASPIRIN 81 MG TAB.CHEW PO SCH (08:13)
[2019-11-14] MEDS: metFORMIN 500 MG TABLET PO SCH ×2 (08:13→16:08)
[2019-11-14] MEDS: CETIRIZINE HCL 10 MG TABLET PO SCH (08:13)
[2019-11-14] MEDS: ZIPRASIDONE 20 MG CAPSULE. PO SCH ×2 (08:13→20:18)
[2019-11-14] MEDS: GABAPENTIN 300 MG CAPSULE. PO SCH ×4 (08:13→20:12)
[2019-11-14] MEDS: METOPROLOL SUCC 24HR ER 50 MG TAB.ER.24H. PO SCH (08:13)
[2019-11-14] MEDS: NYSTATIN TOPICAL POWDER 15GM BOTTLE. TP SCH ×2 (08:14→20:12)
[2019-11-14] MEDS: AMMONIUM LACTATE 12% TOPICAL LOTION 226GM BOTTLE. TP SCH ×2 (08:14→20:12)
[2019-11-14] MEDS: LISINOPRIL 10 MG TABLET PO SCH (16:10)
[2019-11-14 16:40] VITALS: BP 116/86
[2019-11-14] MEDS: SIMVASTATIN 40 MG TABLET. PO SCH (20:11)
[2019-11-14] MEDS: MIRTAZAPINE 7.5 MG TABLET. PO SCH (20:12)
[2019-11-14] MEDS: DIVALPROEX ER 500 MG TAB.ER.24H PO SCH (20:12)
--- NOTE | 2019-11-14 21:56 | PDOC ---
Exam Note: Mazin Note: Please also refer to the separate dictated note~for this date of service dictated separately.~Patient seen individually. Discussed the patient with Nursing staff reviewed the chart.~Reviewed interim history and current functioning. Reviewed vital signs,~Labs/ Radiology~and current medications noted below. Continue current treatment with the changes noted in the dictated addendum note Assessment: Vital Signs/I&O: Vital Signs Date Time Temp Pulse Resp B/P (MAP) Pulse Ox O2 Delivery O2 Flow Rate FiO2 11/14/19 16:40 97.4 83 16 116/86 (96) 93 11/13/19 05:33 Room Air I & O 11/13/19 11/13/19 11/14/19 15:00 23:00 07:00 Intake Total 480 ml 0 ml 120 ml Balance 480 ml 0 ml 120 ml Labs: Laboratory Tests Test 11/14/19 07:23 White Blood Count 6.6 x10^3/uL (4.0-11.0) Red Blood Count 4.40 x10^6/uL (4.30-5.70) Hemoglobin 13.7 g/dL (13.0-17.5) Hematocrit 41.4 % (39.0-53.0) Mean Corpuscular Volume 94 fL (79-100) Mean Corpuscular Hemoglobin 31 pg (25-35) Mean Corpuscular Hemoglobin Concent 33 g/dL (31-37) Red Cell Distribution Width 14.9 % (11.5-14.5) H Platelet Count 163 x10^3/uL (140-400) Neutrophils (%) (Auto) 68 % (31-73) Lymphocytes (%) (Auto) 17 % (24-48) L Monocytes (%) (Auto) 10 % (0-9) H Eosinophils (%) (Auto) 5 % (0-3) H Basophils (%) (Auto) 1 % (0-3) Neutrophils # (Auto) 4.5 x10^3uL (1.8-7.7) Lymphocytes # (Auto) 1.1 x10^3/uL (1.0-4.8) Monocytes # (Auto) 0.6 x10^3/uL (0.0-1.1) Eosinophils # (Auto) 0.3 x10^3/uL (0.0-0.7) Basophils # (Auto) 0.1 x10^3/uL (0.0-0.2) Prothrombin Time 37.6 SEC (9.4-11.4) H Prothrombin Time INR 3.6 (0.9-1.1) H Sodium Level 144 mmol/L (136-145) Potassium Level 4.0 mmol/L (3.5-5.1) Chloride Level 106 mmol/L (98-107) Carbon Dioxide Level 28 mmol/L (21-32) Anion Gap 10 (6-14) Blood Urea Nitrogen 32 mg/dL (8-26) H Creatinine 1.4 mg/dL (0.7-1.3) H Estimated GFR (Cockcroft-Gault) 50.1 BUN/Creatinine Ratio 23 (6-20) H Glucose Level 128 mg/dL (70-99) H Calcium Level 8.3 mg/dL (8.5-10.1) L Total Bilirubin 0.3 mg/dL (0.2-1.0) Aspartate Amino Transferase (AST) 16 U/L (15-37) Alanine Aminotransferase (ALT) 17 U/L (16-63) Alkaline Phosphatase 80 U/L (46-116) Total Protein 6.4 g/dL (6.4-8.2) Albumin 2.9 g/dL (3.4-5.0) L Albumin/Globulin Ratio 0.8 (1.0-1.7) L Valproic Acid Level 28 mcg/mL (50-100) L Valproic Acid Last Dose Date 11/13/19 Valproic Acid Last Dose Time 2100 Current Medications: Meds: Current Medications Medications (Trade) Dose Ordered Sig/Svetlana Route PRN Reason Start Time Stop Time Status Last Admin Dose Admin Divalproex Sodium (Depakote Er) 500 mg BID PO 11/14/19 21:00 11/14/19 20:12 Ziprasidone (Geodon) 40 mg BID PO 11/14/19 21:00 11/14/19 20:18 I have reviewed the current psychotropics carefully including drug interactions. Risk benefit ratio favors no change other than as noted in my dictated progress note. Diagnosis: Problems: (1) Major depress, sev w/ psych (2) Bipolar disorder with psychotic features (3) Major depressive disorder with psychotic features (4) Anxiety disorder (5) Psychosis, atypical (6) Impulse control disorder MASON,MAN M MD Nov 14, 2019 21:56
[2019-11-15 06:28] VITALS: BP 137/87
[2019-11-15] MEDS: ASPIRIN 81 MG TAB.CHEW PO SCH (08:39)
[2019-11-15] MEDS: FUROSEMIDE 40 MG TABLET PO SCH (08:39)
[2019-11-15] MEDS: GABAPENTIN 300 MG CAPSULE. PO SCH ×4 (08:39→20:15)
[2019-11-15] MEDS: metFORMIN 500 MG TABLET PO SCH ×2 (08:39→16:55)
[2019-11-15] MEDS: DIVALPROEX ER 500 MG TAB.ER.24H PO SCH ×2 (08:39→20:15)
[2019-11-15] MEDS: FAMOTIDINE 20 MG TABLET PO SCH ×2 (08:40→20:15)
[2019-11-15] MEDS: CETIRIZINE HCL 10 MG TABLET PO SCH (08:40)
[2019-11-15] MEDS: ZIPRASIDONE 20 MG CAPSULE. PO SCH ×2 (08:40→20:21)
[2019-11-15] MEDS: METOPROLOL SUCC 24HR ER 50 MG TAB.ER.24H. PO SCH (08:40)
[2019-11-15] MEDS: AMMONIUM LACTATE 12% TOPICAL LOTION 226GM BOTTLE. TP SCH ×2 (08:41→20:15)
[2019-11-15] MEDS: NYSTATIN TOPICAL POWDER 15GM BOTTLE. TP SCH ×2 (08:41→20:15)
[2019-11-15] MEDS ORDERED: WARFARIN 2 MG TABLET. PO ONE (16:00)
[2019-11-15 16:07] VITALS: BP 125/79
[2019-11-15] MEDS: LISINOPRIL 10 MG TABLET PO SCH (16:55)
[2019-11-15] MEDS: MIRTAZAPINE 7.5 MG TABLET. PO SCH (20:15)
[2019-11-15] MEDS: SIMVASTATIN 40 MG TABLET. PO SCH (20:15)
--- NOTE | 2019-11-15 21:48 | PDOC ---
Exam Note: Mazin Note: Please also refer to the separate dictated note~for this date of service dictated separately.~Patient seen individually. Discussed the patient with Nursing staff reviewed the chart.~Reviewed interim history and current functioning. Reviewed vital signs,~Labs/ Radiology~and current medications noted below. Continue current treatment with the changes noted in the dictated addendum note Assessment: Vital Signs/I&O: Vital Signs Date Time Temp Pulse Resp B/P (MAP) Pulse Ox O2 Delivery O2 Flow Rate FiO2 11/15/19 16:55 90 125/79 11/15/19 16:07 97.4 16 100 11/13/19 05:33 Room Air I & O 11/14/19 11/14/19 11/15/19 15:00 23:00 07:00 Intake Total 580 ml 360 ml Balance 580 ml 360 ml Labs: Laboratory Tests Test 11/15/19 06:03 Prothrombin Time 28.4 SEC (9.4-11.4) H Prothrombin Time INR 2.7 (0.9-1.1) H Current Medications: Meds: Current Medications Medications (Trade) Dose Ordered Sig/Svetlana Route PRN Reason Start Time Stop Time Status Last Admin Dose Admin Warfarin Sodium (Coumadin) 2 mg 1X WARF ONCE PO 11/15/19 16:00 11/15/19 16:01 DC 11/15/19 16:56 I have reviewed the current psychotropics carefully including drug interactions. Risk benefit ratio favors no change other than as noted in my dictated progress note. Diagnosis: Problems: (1) Major depress, sev w/ psych (2) Bipolar disorder with psychotic features (3) Major depressive disorder with psychotic features (4) Anxiety disorder (5) Psychosis, atypical (6) Impulse control disorder MARIANN CUEVAS MD Nov 15, 2019 21:48
[2019-11-16 05:57] VITALS: BP 124/69
[2019-11-16] MEDS: FAMOTIDINE 20 MG TABLET PO SCH ×2 (08:55→19:47)
[2019-11-16] MEDS: GABAPENTIN 300 MG CAPSULE. PO SCH ×4 (08:55→19:47)
[2019-11-16] MEDS: ZIPRASIDONE 20 MG CAPSULE. PO SCH ×2 (08:55→19:48)
[2019-11-16] MEDS: CETIRIZINE HCL 10 MG TABLET PO SCH (08:55)
[2019-11-16] MEDS: FUROSEMIDE 40 MG TABLET PO SCH (08:55)
[2019-11-16] MEDS: METOPROLOL SUCC 24HR ER 50 MG TAB.ER.24H. PO SCH (08:56)
[2019-11-16] MEDS: metFORMIN 500 MG TABLET PO SCH ×2 (08:56→16:41)
[2019-11-16] MEDS: CHOLECALCIFEROL (VITAMIN D3) 50,000 UNIT CAPSULE PO SCH (08:56)
[2019-11-16] MEDS: DIVALPROEX ER 500 MG TAB.ER.24H PO SCH ×2 (08:56→19:48)
[2019-11-16] MEDS: ASPIRIN 81 MG TAB.CHEW PO SCH (08:56)
[2019-11-16] MEDS: NYSTATIN TOPICAL POWDER 15GM BOTTLE. TP SCH ×2 (08:57→19:51)
[2019-11-16] MEDS: AMMONIUM LACTATE 12% TOPICAL LOTION 226GM BOTTLE. TP SCH ×2 (08:57→19:51)
--- NOTE | 2019-11-16 09:49 | PN ---
DATE: 11/14/2019 This late entry 11/14/2019 covers elements not covered in my initial note. SUBJECTIVE: I met with the patient evening of 11/14/2019. Reviewed information from Dr. Mello, who covered for me for the prior couple of days. The patient remains quite disruptive, restless, had thrown covers of his bed all over the floor, pillows out in the corridor, toilet paper roll thrown into the corridor, remains paranoid, delusional, manic with marked mood lability. He did comply with medications in the morning. On arrival, the toilet paper threw it all over with his room for "I wanted to do it." There is no other explanation for this as I questioned him. REVIEW OF SYSTEMS: No CV, , pulmonary, eye system symptoms on review. Reliability poor. MENTAL STATUS EXAM: Oriented to himself, situation at times. Speech is coherent, can be pressured at times, quite dismissive, abstraction fair, computation impaired, language function intact, attention span short. Mood and affect remains labile and grandiose. LABORATORY DATA: Reviewed. IMPRESSION: Schizoaffective disorder, bipolar type, mixed with psychotic features; impulse control disorder; anxiety disorder, unspecified; mild cognitive impairment. PLAN: Continue to increase the Geodon to 40 mg b.i.d. Check EKG after 2 days on Geodon. Valproic acid level subtherapeutic at 28 on Depakote 500 mg at bedtime. We will increase to 500 mg twice a day. Check CBC, CMP, valproic acid level in 3 days. Continue rest of the psychotropics unchanged. MAN Juliette CUEVAS MD DR: DEEDEE/sofía JOB#: [id number] / [id number]
[2019-11-16] MEDS ORDERED: WARFARIN 2 MG TABLET. PO ONE (16:00)
[2019-11-16 16:39] VITALS: BP 119/77
[2019-11-16] MEDS: LISINOPRIL 10 MG TABLET PO SCH (16:41)
[2019-11-16] MEDS: SIMVASTATIN 40 MG TABLET. PO SCH (19:47)
[2019-11-16] MEDS: MIRTAZAPINE 7.5 MG TABLET. PO SCH (19:47)
--- NOTE | 2019-11-16 19:58 | PN ---
DATE: 11/15/2019 PSYCHIATRIC PROGRESS NOTE This late entry November 14, covers elements not covered in my initial note. SUBJECTIVE: I met with the patient evening of November 14. Per BENITA Hurley, the patient slept 3 and a quarter hours previous night. He was restless at night toward his bed last evening, picked up the chair and flipped it in the [place] [address], throwing his belongings on the floor, making bizarre statements, "I cast you out with blood and scriptures." He remains quite psychotic. REVIEW OF SYSTEMS: No CV, , pulmonary, eye system symptoms on review. Reliability varies. MENTAL STATUS EXAM: Oriented to himself and situation. Speech coherent, rapid at times. Abstraction fair, computation impaired, language function intact, attention span short. Mood and affect remains labile. LABORATORY DATA: Reviewed. IMPRESSION: Schizoaffective disorder, bipolar type, mixed with psychotic features versus schizophrenia, chronic, undifferentiated with acute exacerbation, mild cognitive impairment. Rest unchanged. PLAN: Increase the Geodon to 40 mg twice a day. Check an EKG. Depakote has been increased to 500 mg twice a day with repeat labs level with a plan to achieve a therapeutic level between 50 and 100. Continue rest of psychotropics unchanged including Remeron, Zyprexa p.r.n., and trazodone at bedtime p.r.n. MAN Juliette CUEVAS MD DR: DEEDEE/sofía JOB#: [id number] / [id number]
--- NOTE | 2019-11-16 22:08 | PDOC ---
Exam Note: Mazin Note: Please also refer to the separate dictated note~for this date of service dictated separately.~Patient seen individually. Discussed the patient with Nursing staff reviewed the chart.~Reviewed interim history and current functioning. Reviewed vital signs,~Labs/ Radiology~and current medications noted below. Continue current treatment with the changes noted in the dictated addendum note Assessment: Vital Signs/I&O: Vital Signs Date Time Temp Pulse Resp B/P (MAP) Pulse Ox O2 Delivery O2 Flow Rate FiO2 11/16/19 16:41 99 119/77 11/16/19 16:39 98.6 16 100 11/13/19 05:33 Room Air I & O 11/15/19 11/15/19 11/16/19 15:00 23:00 07:00 Intake Total 1080 ml 360 ml Balance 1080 ml 360 ml Labs: Laboratory Tests Test 11/16/19 06:11 Prothrombin Time 27.6 SEC (9.4-11.4) H Prothrombin Time INR 2.7 (0.9-1.1) H Current Medications: Meds: Current Medications Medications (Trade) Dose Ordered Sig/Svetlana Route PRN Reason Start Time Stop Time Status Last Admin Dose Admin Warfarin Sodium (Coumadin) 2 mg 1X WARF ONCE PO 11/16/19 16:00 11/16/19 16:01 DC 11/16/19 16:41 I have reviewed the current psychotropics carefully including drug interactions. Risk benefit ratio favors no change other than as noted in my dictated progress note. Diagnosis: Problems: (1) Major depress, sev w/ psych (2) Bipolar disorder with psychotic features (3) Major depressive disorder with psychotic features (4) Anxiety disorder (5) Psychosis, atypical (6) Impulse control disorder MARIANN CUEVAS MD Nov 16, 2019 22:08
[2019-11-17 05:55] VITALS: BP 111/53
[2019-11-17] MEDS: NYSTATIN TOPICAL POWDER 15GM BOTTLE. TP SCH ×2 (09:00→20:11)
[2019-11-17] MEDS: ZIPRASIDONE 60 MG CAPSULE. PO SCH ×2 (10:27→20:08)
[2019-11-17] MEDS: ASPIRIN 81 MG TAB.CHEW PO SCH (10:27)
[2019-11-17] MEDS: metFORMIN 500 MG TABLET PO SCH ×2 (10:27→16:23)
[2019-11-17] MEDS: GABAPENTIN 300 MG CAPSULE. PO SCH ×4 (10:27→20:09)
[2019-11-17] MEDS: DIVALPROEX ER 500 MG TAB.ER.24H PO SCH ×2 (10:28→20:09)
[2019-11-17] MEDS: METOPROLOL SUCC 24HR ER 50 MG TAB.ER.24H. PO SCH (10:28)
[2019-11-17] MEDS: FAMOTIDINE 20 MG TABLET PO SCH ×2 (10:28→20:09)
[2019-11-17] MEDS: FUROSEMIDE 40 MG TABLET PO SCH (10:28)
[2019-11-17] MEDS: CETIRIZINE HCL 10 MG TABLET PO SCH (10:28)
[2019-11-17] MEDS: AMMONIUM LACTATE 12% TOPICAL LOTION 226GM BOTTLE. TP SCH ×2 (10:29→20:10)
[2019-11-17] MEDS ORDERED: WARFARIN 2 MG TABLET. PO ONE (16:00)
[2019-11-17 16:04] VITALS: BP 138/79
[2019-11-17] MEDS: LISINOPRIL 10 MG TABLET PO SCH (16:24)
--- NOTE | 2019-11-17 17:40 | EKG ---
[address] [address] Test Date: 2019-11-17 Test Time: 14:41:33 Pat Name: KATHLEEN QUACH Department: Room: [address] [place] [address] Gender: M [employer] Records Clerk: : 1950 Requested By: MARIANN CUEVAS Order Number: [id number] Reading MD: Measurements Intervals [place] Rate: P: LA: QRS: QRSD: T: QT: QTc: Interpretive Statements
[2019-11-17] MEDS: MIRTAZAPINE 7.5 MG TABLET. PO SCH (20:09)
[2019-11-17] MEDS: SIMVASTATIN 40 MG TABLET. PO SCH (20:09)
--- NOTE | 2019-11-17 23:06 | PDOC ---
Exam Note: Mazin Note: Please also refer to the separate dictated note~for this date of service dictated separately.~Patient seen individually. Discussed the patient with Nursing staff reviewed the chart.~Reviewed interim history and current functioning. Reviewed vital signs,~Labs/ Radiology~and current medications noted below. Continue current treatment with the changes noted in the dictated addendum note Assessment: Vital Signs/I&O: Vital Signs Date Time Temp Pulse Resp B/P (MAP) Pulse Ox O2 Delivery O2 Flow Rate FiO2 11/17/19 16:24 97 138/79 11/17/19 16:04 97.5 18 100 11/13/19 05:33 Room Air I & O 11/16/19 11/16/19 11/17/19 15:00 23:00 07:00 Intake Total 840 ml 720 ml Balance 840 ml 720 ml Labs: Laboratory Tests Test 11/17/19 06:40 Prothrombin Time 27.5 SEC (9.4-11.4) H Prothrombin Time INR 2.6 (0.9-1.1) H Current Medications: Meds: Current Medications Medications (Trade) Dose Ordered Sig/Svetlana Route PRN Reason Start Time Stop Time Status Last Admin Dose Admin Ziprasidone (Geodon) 60 mg BID PO 11/17/19 09:00 11/17/19 20:08 Warfarin Sodium (Coumadin) 2 mg 1X WARF ONCE PO 11/17/19 16:00 11/17/19 16:01 DC 11/17/19 16:23 I have reviewed the current psychotropics carefully including drug interactions. Risk benefit ratio favors no change other than as noted in my dictated progress note. Diagnosis: Problems: (1) Major depress, sev w/ psych (2) Bipolar disorder with psychotic features (3) Major depressive disorder with psychotic features (4) Anxiety disorder (5) Psychosis, atypical (6) Impulse control disorder MARIANN CUEVAS MD Nov 17, 2019 23:06
[2019-11-18 06:29] VITALS: BP 122/65
[2019-11-18 06:59] LABS: BASO % 1 % (0-3); EOS # 0.4 x10^3/uL (0.0-0.7); EOS % 5 % (0-3); HEMATOCRIT 45.9 % (39.0-53.0); HEMOGLOBIN 15.2 g/dL (13.0-17.5); LYMPH # 1.1 x10^3/uL (1.0-4.8); LYMPH % 16 % (24-48); MEAN CORPUSCULAR HEMOGLOBIN 31 pg (25-35); MEAN CORPUSCULAR HGB CONC 33 g/dL (31-37); MEAN CORPUSCULAR VOLUME 94 fL (79-100); MONO # 0.6 x10^3/uL (0.0-1.1); MONO % 8 % (0-9); NEUT # 4.9 x10^3uL (1.8-7.7); NEUT % 70 % (31-73); PLATELET COUNT 198 x10^3/uL (140-400); RED BLOOD COUNT 4.87 x10^6/uL (4.30-5.70); RED CELL DISTRIBUTION WIDTH 14.7 % (11.5-14.5)
[2019-11-18 07:15] LABS: ALBUMIN 3.3 g/dL (3.4-5.0); ALBUMIN/GLOBULIN RATIO 0.8 (1.0-1.7); ALK PHOS 92 U/L (46-116); ALT (SGPT) 23 U/L (16-63); ANION GAP 6 (6-14); AST (SGOT) 28 U/L (15-37); BLOOD UREA NITROGEN 29 mg/dL (8-26); BUN/CREATININE RATIO 22 (6-20); CALCIUM 8.7 mg/dL (8.5-10.1); CARBON DIOXIDE 32 mmol/L (21-32); CHLORIDE 104 mmol/L (98-107); CREATININE 1.3 mg/dL (0.7-1.3); GFR 54.6; GLUCOSE 148 mg/dL (70-99); POTASSIUM 3.9 mmol/L (3.5-5.1); SODIUM 142 mmol/L (136-145); TOTAL BILIRUBIN 0.6 mg/dL (0.2-1.0); TOTAL PROTEIN 7.2 g/dL (6.4-8.2)
[2019-11-18 07:17] LABS: VAL ACID 74 mcg/mL (50-100)
[2019-11-18] MEDS: ZIPRASIDONE 60 MG CAPSULE. PO SCH ×2 (08:53→21:20)
[2019-11-18] MEDS: metFORMIN 500 MG TABLET PO SCH ×2 (08:53→16:50)
[2019-11-18] MEDS: FUROSEMIDE 40 MG TABLET PO SCH ×2 (08:53→16:50)
[2019-11-18] MEDS: CETIRIZINE HCL 10 MG TABLET PO SCH (08:54)
[2019-11-18] MEDS: ASPIRIN 81 MG TAB.CHEW PO SCH (08:54)
[2019-11-18] MEDS: METOPROLOL SUCC 24HR ER 50 MG TAB.ER.24H. PO SCH (08:54)
[2019-11-18] MEDS: GABAPENTIN 300 MG CAPSULE. PO SCH ×4 (08:54→21:20)
[2019-11-18] MEDS: DIVALPROEX ER 500 MG TAB.ER.24H PO SCH ×2 (08:54→21:20)
[2019-11-18] MEDS: FAMOTIDINE 20 MG TABLET PO SCH ×2 (08:54→21:19)
[2019-11-18] MEDS: AMMONIUM LACTATE 12% TOPICAL LOTION 226GM BOTTLE. TP SCH ×2 (08:55→21:00)
[2019-11-18] MEDS: NYSTATIN TOPICAL POWDER 15GM BOTTLE. TP SCH ×2 (08:55→21:00)
--- NOTE | 2019-11-18 11:50 | PN ---
DATE: 11/16/2019 PSYCHIATRIC PROGRESS NOTE This late entry 11/16/2019 covers elements not covered in my initial note. SUBJECTIVE: I met with the patient evening of 11/16/2019. Per BENITA Herrera, the patient slept 5 hours previous night. He has been quite labile in his mood. He ripped his shirt off and then threw trash in his linens on the floor, verbally aggressive. He did better until breakfast and then at breakfast time was throwing food at staff members, totally oblivious of what he was doing, stated he just wanted to do it, [facility] Attempt was made to do an EKG. He grabbed the EKG machine, was trying to throw, agitated. REVIEW OF SYSTEMS: No CV, , pulmonary, eye system symptoms on review. MENTAL STATUS EXAM: Reasonably oriented. Speech coherent, rapid at times, somewhat dismissive, abstraction fair, computation impaired, language function intact. He is quite paranoid. LABORATORY DATA: Reviewed. IMPRESSION: Bipolar disorder, mixed with psychotic features versus schizoaffective disorder, bipolar type, mixed with psychotic features. Rest unchanged. PLAN: Increase Geodon from 40 mg twice a day to 60 mg twice a day after he has been on 40 b.i.d. for 2 days. Check EKG to make sure QTC is unremarkable. Adjust Depakote to reach therapeutic level. Follow labs level as indicated. MAN Juliette CUEVAS MD DR: DEEDEE/sofía JOB#: [id number] / [id number]
--- NOTE | 2019-11-18 12:29 | PN ---
DATE: 11/17/2019 PSYCHIATRIC PROGRESS NOTE This late entry 11/17/2019 covers elements not covered in my initial note. SUBJECTIVE: I met with the patient in the evening of 11/17/2019 and staffed at a treatment team meeting with the entire team in the morning. Per BENITA Herrera, the patient slept 6-3/4 hours previous night, average 4 hours. Previous night, he was not disruptive, aggressive and better in the morning. We will check labs for the Depakote, adjust to reach therapeutic level and we also discussed him attending the [facility] in [place]. REVIEW OF SYSTEMS: No CV, , pulmonary, eye system symptoms on review. MENTAL STATUS EXAM: Oriented to himself and situation. Speech coherent, rapid at times. Abstraction fair, computation impaired, language function intact. Mood and affect remains labile. At one point, he was sexually inappropriate. He did well until 3:00 p.m.; after that, he was grabbing nursing aides on the bottoms, would not address this with me as I attempted to process this. LABORATORY DATA: Reviewed. IMPRESSION: Schizoaffective disorder, bipolar type, mixed with psychotic features; bipolar disorder, mixed with psychotic features. Rest unchanged. PLAN: Check labs level on the Depakote, adjust to reach therapeutic level. Rest unchanged. MAN Juliette CUEVAS MD DR: DEEDEE/sofía JOB#: [id number] / [id number]
[2019-11-18] MEDS ORDERED: WARFARIN 1 MG TABLET. PO ONE (16:00)
[2019-11-18 16:41] VITALS: BP 119/82
[2019-11-18] MEDS: LISINOPRIL 10 MG TABLET PO SCH (16:50)
[2019-11-18] MEDS: SIMVASTATIN 40 MG TABLET. PO SCH (21:19)
[2019-11-18] MEDS: MIRTAZAPINE 7.5 MG TABLET. PO SCH (21:19)
[2019-11-18] MEDS: POTASSIUM CHLORIDE 20 MEQ TABLET.ER. PO SCH (21:20)
--- NOTE | 2019-11-18 23:05 | PDOC ---
Exam Note: Mazin Note: Please also refer to the separate dictated note~for this date of service dictated separately. Discussed the patient with Nursing staff reviewed the chart.~Reviewed interim history and current functioning. Reviewed vital signs,~Labs/ Radiology~and current medications noted below. Continue current treatment with the changes noted in the dictated addendum note Assessment: Vital Signs/I&O: Vital Signs Date Time Temp Pulse Resp B/P (MAP) Pulse Ox O2 Delivery O2 Flow Rate FiO2 11/18/19 16:50 94 119/82 11/18/19 16:41 98.1 18 98 11/18/19 06:29 Room Air I & O 11/17/19 11/17/19 11/18/19 15:00 23:00 07:00 Intake Total 840 ml 1080 ml Balance 840 ml 1080 ml Labs: Laboratory Tests Test 11/18/19 06:44 White Blood Count 7.0 x10^3/uL (4.0-11.0) Red Blood Count 4.87 x10^6/uL (4.30-5.70) Hemoglobin 15.2 g/dL (13.0-17.5) Hematocrit 45.9 % (39.0-53.0) Mean Corpuscular Volume 94 fL (79-100) Mean Corpuscular Hemoglobin 31 pg (25-35) Mean Corpuscular Hemoglobin Concent 33 g/dL (31-37) Red Cell Distribution Width 14.7 % (11.5-14.5) H Platelet Count 198 x10^3/uL (140-400) Neutrophils (%) (Auto) 70 % (31-73) Lymphocytes (%) (Auto) 16 % (24-48) L Monocytes (%) (Auto) 8 % (0-9) Eosinophils (%) (Auto) 5 % (0-3) H Basophils (%) (Auto) 1 % (0-3) Neutrophils # (Auto) 4.9 x10^3uL (1.8-7.7) Lymphocytes # (Auto) 1.1 x10^3/uL (1.0-4.8) Monocytes # (Auto) 0.6 x10^3/uL (0.0-1.1) Eosinophils # (Auto) 0.4 x10^3/uL (0.0-0.7) Basophils # (Auto) 0.0 x10^3/uL (0.0-0.2) Prothrombin Time 28.6 SEC (9.4-11.4) H Prothrombin Time INR 2.8 (0.9-1.1) H Sodium Level 142 mmol/L (136-145) Potassium Level 3.9 mmol/L (3.5-5.1) Chloride Level 104 mmol/L (98-107) Carbon Dioxide Level 32 mmol/L (21-32) Anion Gap 6 (6-14) Blood Urea Nitrogen 29 mg/dL (8-26) H Creatinine 1.3 mg/dL (0.7-1.3) Estimated GFR (Cockcroft-Gault) 54.6 BUN/Creatinine Ratio 22 (6-20) H Glucose Level 148 mg/dL (70-99) H Calcium Level 8.7 mg/dL (8.5-10.1) Total Bilirubin 0.6 mg/dL (0.2-1.0) Aspartate Amino Transferase (AST) 28 U/L (15-37) Alanine Aminotransferase (ALT) 23 U/L (16-63) Alkaline Phosphatase 92 U/L (46-116) Ammonia < 10 mcmol/L (11-34) L Total Protein 7.2 g/dL (6.4-8.2) Albumin 3.3 g/dL (3.4-5.0) L Albumin/Globulin Ratio 0.8 (1.0-1.7) L Valproic Acid Level 74 mcg/mL (50-100) Valproic Acid Last Dose Date 11/17/19 Valproic Acid Last Dose Time 2100 Current Medications: Meds: Current Medications Medications (Trade) Dose Ordered Sig/Svetlana Route PRN Reason Start Time Stop Time Status Last Admin Dose Admin Warfarin Sodium (Coumadin) 1.5 mg 1X WARF ONCE PO 11/18/19 16:00 11/18/19 16:01 DC 11/18/19 16:51 Furosemide (Lasix) 40 mg BID94 PO 11/18/19 16:00 11/18/19 16:50 Potassium Chloride (Klor-Con) 20 meq BID PO 11/18/19 21:00 11/18/19 21:20 I have reviewed the current psychotropics carefully including drug interactions. Risk benefit ratio favors no change other than as noted in my dictated progress note. Diagnosis: Problems: (1) Major depress, sev w/ psych (2) Bipolar disorder with psychotic features (3) Major depressive disorder with psychotic features (4) Anxiety disorder (5) Psychosis, atypical (6) Impulse control disorder MARIANN CUEVAS MD Nov 18, 2019 23:04
[2019-11-19 07:00] VITALS: BP 118/67
[2019-11-19] MEDS: POTASSIUM CHLORIDE 20 MEQ TABLET.ER. PO SCH ×2 (08:56→20:39)
[2019-11-19] MEDS: METOPROLOL SUCC 24HR ER 50 MG TAB.ER.24H. PO SCH (08:56)
[2019-11-19] MEDS: CETIRIZINE HCL 10 MG TABLET PO SCH (08:56)
[2019-11-19] MEDS: ASPIRIN 81 MG TAB.CHEW PO SCH (08:56)
[2019-11-19] MEDS: metFORMIN 500 MG TABLET PO SCH ×2 (08:56→17:35)
[2019-11-19] MEDS: DIVALPROEX ER 500 MG TAB.ER.24H PO SCH ×2 (08:57→20:39)
[2019-11-19] MEDS: ZIPRASIDONE 60 MG CAPSULE. PO SCH ×2 (08:57→20:39)
[2019-11-19] MEDS: FUROSEMIDE 40 MG TABLET PO SCH ×2 (08:57→17:35)
[2019-11-19] MEDS: FAMOTIDINE 20 MG TABLET PO SCH ×2 (08:57→20:39)
[2019-11-19] MEDS: GABAPENTIN 300 MG CAPSULE. PO SCH ×4 (08:57→20:39)
[2019-11-19] MEDS: AMMONIUM LACTATE 12% TOPICAL LOTION 226GM BOTTLE. TP SCH ×2 (09:00→19:38)
[2019-11-19] MEDS: NYSTATIN TOPICAL POWDER 15GM BOTTLE. TP SCH ×2 (09:00→21:00)
[2019-11-19] MEDS ORDERED: WARFARIN 2 MG TABLET. PO ONE (16:00)
[2019-11-19 16:12] VITALS: BP 110/68
[2019-11-19] MEDS: LISINOPRIL 10 MG TABLET PO SCH (17:35)
[2019-11-19] MEDS: MIRTAZAPINE 7.5 MG TABLET. PO SCH (20:38)
[2019-11-19] MEDS: SIMVASTATIN 40 MG TABLET. PO SCH (20:39)
--- NOTE | 2019-11-19 22:47 | PDOC ---
Exam Note: Mazin Note: Please also refer to the separate dictated note~for this date of service dictated separately. Discussed the patient with Nursing staff reviewed the chart.~Reviewed interim history and current functioning. Reviewed vital signs,~Labs/ Radiology~and current medications noted below. Continue current treatment with the changes noted in the dictated addendum note Assessment: Vital Signs/I&O: Vital Signs Date Time Temp Pulse Resp B/P (MAP) Pulse Ox O2 Delivery O2 Flow Rate FiO2 11/19/19 17:35 86 110/68 11/19/19 16:12 97.5 18 100 11/18/19 06:29 Room Air I & O 11/18/19 11/18/19 11/19/19 15:00 23:00 07:00 Intake Total 840 ml 240 ml 240 ml Balance 840 ml 240 ml 240 ml Labs: Laboratory Tests Test 11/19/19 10:05 Prothrombin Time 24.6 SEC (9.4-11.4) H Prothrombin Time INR 2.4 (0.9-1.1) H Current Medications: Meds: Current Medications Medications (Trade) Dose Ordered Sig/Svetlana Route PRN Reason Start Time Stop Time Status Last Admin Dose Admin Warfarin Sodium (Coumadin) 2 mg 1X WARF ONCE PO 11/19/19 16:00 11/19/19 16:01 DC 11/19/19 18:01 I have reviewed the current psychotropics carefully including drug interactions. Risk benefit ratio favors no change other than as noted in my dictated progress note. Diagnosis: Problems: (1) Major depress, sev w/ psych (2) Bipolar disorder with psychotic features (3) Major depressive disorder with psychotic features (4) Anxiety disorder (5) Psychosis, atypical (6) Impulse control disorder MARIANN CUEVAS MD Nov 19, 2019 22:47
[2019-11-20 06:17] VITALS: BP 122/81
[2019-11-20] MEDS: ASPIRIN 81 MG TAB.CHEW PO SCH (08:14)
[2019-11-20] MEDS: metFORMIN 500 MG TABLET PO SCH ×2 (08:14→17:50)
[2019-11-20] MEDS: DIVALPROEX ER 500 MG TAB.ER.24H PO SCH ×2 (08:14→19:57)
[2019-11-20] MEDS: ZIPRASIDONE 60 MG CAPSULE. PO SCH ×2 (08:14→19:57)
[2019-11-20] MEDS: FAMOTIDINE 20 MG TABLET PO SCH ×2 (08:15→19:58)
[2019-11-20] MEDS: METOPROLOL SUCC 24HR ER 50 MG TAB.ER.24H. PO SCH (08:15)
[2019-11-20] MEDS: FUROSEMIDE 40 MG TABLET PO SCH ×2 (08:15→17:50)
[2019-11-20] MEDS: POTASSIUM CHLORIDE 20 MEQ TABLET.ER. PO SCH ×2 (08:15→19:58)
[2019-11-20] MEDS: CETIRIZINE HCL 10 MG TABLET PO SCH (08:16)
[2019-11-20] MEDS: GABAPENTIN 300 MG CAPSULE. PO SCH ×4 (08:18→19:58)
[2019-11-20] MEDS: NYSTATIN TOPICAL POWDER 15GM BOTTLE. TP SCH ×2 (09:00→19:58)
[2019-11-20] MEDS: AMMONIUM LACTATE 12% TOPICAL LOTION 226GM BOTTLE. TP SCH ×2 (09:00→19:58)
[2019-11-20] MEDS ORDERED: WARFARIN 2.5 MG TABLET. PO ONE (16:00)
[2019-11-20 16:34] VITALS: BP 125/74
[2019-11-20] MEDS: LISINOPRIL 10 MG TABLET PO SCH (17:50)
[2019-11-20] MEDS: MIRTAZAPINE 7.5 MG TABLET. PO SCH (19:57)
[2019-11-20] MEDS: SIMVASTATIN 40 MG TABLET. PO SCH (19:58)
--- NOTE | 2019-11-20 21:51 | PDOC ---
Exam Note: Mazin Note: Please also refer to the separate dictated note~for this date of service dictated separately. Discussed the patient with Nursing staff reviewed the chart.~Reviewed interim history and current functioning. Reviewed vital signs,~Labs/ Radiology~and current medications noted below. Continue current treatment with the changes noted in the dictated addendum note Assessment: Vital Signs/I&O: Vital Signs Date Time Temp Pulse Resp B/P (MAP) Pulse Ox O2 Delivery O2 Flow Rate FiO2 11/20/19 17:50 89 125/74 11/20/19 16:34 97.7 18 98 Room Air I & O 11/19/19 11/19/19 11/20/19 15:00 23:00 07:00 Intake Total 720 ml 780 ml Balance 720 ml 780 ml Labs: Laboratory Tests Test 11/20/19 11:20 Prothrombin Time 23.1 SEC (9.4-11.4) H Prothrombin Time INR 2.2 (0.9-1.1) H Current Medications: Meds: Current Medications Medications (Trade) Dose Ordered Sig/Svetlana Route PRN Reason Start Time Stop Time Status Last Admin Dose Admin Warfarin Sodium (Coumadin) 2.5 mg 1X WARF ONCE PO 11/20/19 16:00 11/20/19 16:01 DC 11/20/19 17:50 I have reviewed the current psychotropics carefully including drug interactions. Risk benefit ratio favors no change other than as noted in my dictated progress note. Diagnosis: Problems: (1) Major depress, sev w/ psych (2) Bipolar disorder with psychotic features (3) Major depressive disorder with psychotic features (4) Anxiety disorder (5) Psychosis, atypical (6) Impulse control disorder MARIANN CUEVAS MD Nov 20, 2019 21:51
[2019-11-21 06:19] VITALS: BP 106/70
[2019-11-21 07:35] LABS: CALCIUM 8.9 mg/dL (8.5-10.1); CREATININE 1.5 mg/dL (0.7-1.3); GFR 46.3; POTASSIUM 4.4 mmol/L (3.5-5.1)
[2019-11-21] MEDS: CETIRIZINE HCL 10 MG TABLET PO SCH (08:31)
[2019-11-21] MEDS: FUROSEMIDE 40 MG TABLET PO SCH ×2 (08:31→17:14)
[2019-11-21] MEDS: metFORMIN 500 MG TABLET PO SCH ×2 (08:31→17:14)
[2019-11-21] MEDS: DIVALPROEX ER 500 MG TAB.ER.24H PO SCH ×2 (08:31→20:17)
[2019-11-21] MEDS: ZIPRASIDONE 60 MG CAPSULE. PO SCH ×2 (08:31→20:16)
[2019-11-21] MEDS: ASPIRIN 81 MG TAB.CHEW PO SCH (08:31)
[2019-11-21] MEDS: POTASSIUM CHLORIDE 20 MEQ TABLET.ER. PO SCH ×2 (08:31→20:17)
[2019-11-21] MEDS: FAMOTIDINE 20 MG TABLET PO SCH ×2 (08:31→20:16)
[2019-11-21] MEDS: METOPROLOL SUCC 24HR ER 50 MG TAB.ER.24H. PO SCH (08:32)
[2019-11-21] MEDS: AMMONIUM LACTATE 12% TOPICAL LOTION 226GM BOTTLE. TP SCH ×2 (08:32→20:18)
[2019-11-21] MEDS: NYSTATIN TOPICAL POWDER 15GM BOTTLE. TP SCH ×2 (08:32→20:19)
[2019-11-21] MEDS: GABAPENTIN 300 MG CAPSULE. PO SCH ×4 (08:34→20:16)
[2019-11-21] MEDS ORDERED: WARFARIN 2.5 MG TABLET. PO ONE (16:00)
[2019-11-21 16:25] VITALS: BP 90/73
[2019-11-21] MEDS: LISINOPRIL 10 MG TABLET PO SCH (17:00)
[2019-11-21] MEDS: SIMVASTATIN 40 MG TABLET. PO SCH (20:17)
[2019-11-21] MEDS: MIRTAZAPINE 7.5 MG TABLET. PO SCH (20:17)
--- NOTE | 2019-11-21 21:56 | PDOC ---
Exam Note: Mazin Note: Please also refer to the separate dictated note~for this date of service dictated separately. Discussed the patient with Nursing staff reviewed the chart.~Reviewed interim history and current functioning. Reviewed vital signs,~Labs/ Radiology~and current medications noted below. Continue current treatment with the changes noted in the dictated addendum note Assessment: Vital Signs/I&O: Vital Signs Date Time Temp Pulse Resp B/P (MAP) Pulse Ox O2 Delivery O2 Flow Rate FiO2 11/21/19 16:25 97.3 100 16 90/73 (79) 99 11/21/19 06:19 Room Air I & O 11/20/19 11/20/19 11/21/19 15:00 23:00 07:00 Intake Total 600 ml 580 ml Balance 600 ml 580 ml Labs: Laboratory Tests Test 11/21/19 07:08 Prothrombin Time 22.5 SEC (9.4-11.4) H Prothrombin Time INR 2.2 (0.9-1.1) H Sodium Level 145 mmol/L (136-145) Potassium Level 4.4 mmol/L (3.5-5.1) Chloride Level 105 mmol/L (98-107) Carbon Dioxide Level 30 mmol/L (21-32) Anion Gap 10 (6-14) Blood Urea Nitrogen 32 mg/dL (8-26) H Creatinine 1.5 mg/dL (0.7-1.3) H Estimated GFR (Cockcroft-Gault) 46.3 Glucose Level 114 mg/dL (70-99) H Calcium Level 8.9 mg/dL (8.5-10.1) Current Medications: Meds: Current Medications Medications (Trade) Dose Ordered Sig/Svetlana Route PRN Reason Start Time Stop Time Status Last Admin Dose Admin Warfarin Sodium (Coumadin) 2.5 mg 1X WARF ONCE PO 11/21/19 16:00 11/21/19 16:01 DC 11/21/19 17:14 I have reviewed the current psychotropics carefully including drug interactions. Risk benefit ratio favors no change other than as noted in my dictated progress note. Diagnosis: Problems: (1) Major depress, sev w/ psych (2) Bipolar disorder with psychotic features (3) Major depressive disorder with psychotic features (4) Anxiety disorder (5) Psychosis, atypical (6) Impulse control disorder MARIANN CUEVAS MD Nov 21, 2019 21:56
[2019-11-22 05:50] VITALS: BP 106/62
[2019-11-22] MEDS: metFORMIN 500 MG TABLET PO SCH ×2 (08:48→17:18)
[2019-11-22] MEDS: ZIPRASIDONE 60 MG CAPSULE. PO SCH ×2 (08:48→19:48)
[2019-11-22] MEDS: ASPIRIN 81 MG TAB.CHEW PO SCH (08:48)
[2019-11-22] MEDS: FAMOTIDINE 20 MG TABLET PO SCH ×2 (08:49→19:47)
[2019-11-22] MEDS: FUROSEMIDE 40 MG TABLET PO SCH ×2 (08:49→17:20)
[2019-11-22] MEDS: GABAPENTIN 300 MG CAPSULE. PO SCH ×4 (08:49→19:47)
[2019-11-22] MEDS: DIVALPROEX ER 500 MG TAB.ER.24H PO SCH ×2 (08:49→19:47)
[2019-11-22] MEDS: POTASSIUM CHLORIDE 20 MEQ TABLET.ER. PO SCH ×2 (08:49→19:48)
[2019-11-22] MEDS: CETIRIZINE HCL 10 MG TABLET PO SCH (08:49)
[2019-11-22] MEDS: AMMONIUM LACTATE 12% TOPICAL LOTION 226GM BOTTLE. TP SCH ×2 (08:50→19:48)
[2019-11-22] MEDS: METOPROLOL SUCC 24HR ER 50 MG TAB.ER.24H. PO SCH (08:50)
[2019-11-22] MEDS: NYSTATIN TOPICAL POWDER 15GM BOTTLE. TP SCH ×2 (09:00→19:48)
[2019-11-22 15:42] VITALS: BP 113/60
[2019-11-22] MEDS ORDERED: WARFARIN 2.5 MG TABLET. PO ONE (16:00)
[2019-11-22] MEDS: LISINOPRIL 10 MG TABLET PO SCH (17:18)
[2019-11-22] MEDS: SIMVASTATIN 40 MG TABLET. PO SCH (19:48)
[2019-11-22] MEDS: MIRTAZAPINE 7.5 MG TABLET. PO SCH (19:48)
[2019-11-23 06:01] VITALS: BP 105/71
[2019-11-23 06:53] LABS: BASO # 0.1 x10^3/uL (0.0-0.2); BASO % 1 % (0-3); EOS # 0.5 x10^3/uL (0.0-0.7); EOS % 8 % (0-3); HEMATOCRIT 48.4 % (39.0-53.0); HEMOGLOBIN 15.7 g/dL (13.0-17.5); LYMPH % 14 % (24-48); MEAN CORPUSCULAR HEMOGLOBIN 31 pg (25-35); MEAN CORPUSCULAR HGB CONC 32 g/dL (31-37); MEAN CORPUSCULAR VOLUME 96 fL (79-100); MONO # 0.7 x10^3/uL (0.0-1.1); MONO % 10 % (0-9); NEUT # 4.6 x10^3uL (1.8-7.7); NEUT % 67 % (31-73); PLATELET COUNT 127 x10^3/uL (140-400); RED BLOOD COUNT 5.05 x10^6/uL (4.30-5.70); RED CELL DISTRIBUTION WIDTH 14.7 % (11.5-14.5); WHITE BLOOD COUNT 6.9 x10^3/uL (4.0-11.0)
--- NOTE | 2019-11-23 07:03 | PDOC ---
Exam Note: Mazin Note: This is a late entry for 11/18/2019. Currently, the unit is shutdown for any admissions and discharges as directed by the Centers for Disease Control (CDC) and the [facility] ([facility]) because of Coronavirus (COVID-19) exposure on the unit. S/O: This is a Telepsychiatry Progress Note. This note covers elements not covered in my initial note. The patient was reviewed with nursing staff, reviewed the chart and TeleHealth Services provided for this date for the patient. Discussed with BENITA Main. He does have some weeping edema, lower extremity. I will defer to Dr. Chapin. He has a Js Hose, compliant with medica tions. Valproic acid level is 74 therapeutic. We will repeat labs on 11/21/2019. ROS: No CV, , Pulmonary, Eye system symptoms on review. MSE: Reasonably oriented. Speech is coherent. Abstraction fair. Computation impaired. Language function intact. Attention span is short. Mood and affect less grandiose, less labile. Labs: Reviewed. Imp: Schizoaffective disorder, bipolar type, mixed with psychotic features. Anxiety disorder unspecified. Impulse control disorder unspecified. Plan: No change from initial note. Assessment: Vital Signs/I&O: Vital Signs Date Time Temp Pulse Resp B/P (MAP) Pulse Ox O2 Delivery O2 Flow Rate FiO2 11/23/19 06:01 97.6 81 18 105/71 (82) 95 11/21/19 06:19 Room Air I & O 11/22/19 11/22/19 11/23/19 15:00 23:00 07:00 Intake Total 720 ml 360 ml Balance 720 ml 360 ml Current Medications: Meds: Current Medications Medications (Trade) Dose Ordered Sig/Svetlana Route PRN Reason Start Time Stop Time Status Last Admin Dose Admin Warfarin Sodium (Coumadin) 2.5 mg 1X WARF ONCE PO 11/22/19 16:00 11/22/19 16:01 DC 11/22/19 17:17 I have reviewed the current psychotropics carefully including drug interactions. Risk benefit ratio favors no change other than as noted in my dictated progress note. Diagnosis: Problems: (1) Major depress, sev w/ psych (2) Bipolar disorder with psychotic features (3) Major depressive disorder with psychotic features (4) Anxiety disorder (5) Psychosis, atypical (6) Impulse control disorder MARIANN CUEVAS MD Nov 23, 2019 07:03
--- NOTE | 2019-11-23 07:35 | PDOC ---
Exam Note: Mazin Note: This is a late entry for 11/19/2019. Currently, the unit is shutdown for any admissions and discharges as directed by the Centers for Disease Control (CDC) and the [facility] ([facility]) because of Coronavirus (COVID-19) exposure on the unit. S/O: This note covers elements not covered in my initial note. The patient was reviewed with nursing staff, reviewed the chart and TeleHealth Services provided for this date for the patient. Discussed with BENITA Tan. Slept 5 hours. No behaviors. ROS: No CV, , Pulmonary, Eye system symptoms on review. MSE: Reasonably oriented. Speech is coherent. Abstraction fair. Computation impaired. Language function intact. Attention span is short. Mood and affect less grandiose, less labile. Labs: Reviewed. Imp: Schizoaffective disorder, bipolar type, mixed with psychotic features. Anxiety disorder unspecified. Impulse control disorder unspecified. Plan: No change from initial note. Assessment: Vital Signs/I&O: Vital Signs Date Time Temp Pulse Resp B/P (MAP) Pulse Ox O2 Delivery O2 Flow Rate FiO2 11/23/19 06:01 97.6 81 18 105/71 (82) 95 11/21/19 06:19 Room Air I & O 11/22/19 11/22/19 11/23/19 15:00 23:00 07:00 Intake Total 720 ml 360 ml Balance 720 ml 360 ml Labs: Laboratory Tests Test 11/23/19 06:28 White Blood Count 6.9 x10^3/uL (4.0-11.0) Red Blood Count 5.05 x10^6/uL (4.30-5.70) Hemoglobin 15.7 g/dL (13.0-17.5) Hematocrit 48.4 % (39.0-53.0) Mean Corpuscular Volume 96 fL (79-100) Mean Corpuscular Hemoglobin 31 pg (25-35) Mean Corpuscular Hemoglobin Concent 32 g/dL (31-37) Red Cell Distribution Width 14.7 % (11.5-14.5) H Platelet Count 127 x10^3/uL (140-400) L Neutrophils (%) (Auto) 67 % (31-73) Lymphocytes (%) (Auto) 14 % (24-48) L Monocytes (%) (Auto) 10 % (0-9) H Eosinophils (%) (Auto) 8 % (0-3) H Basophils (%) (Auto) 1 % (0-3) Neutrophils # (Auto) 4.6 x10^3uL (1.8-7.7) Lymphocytes # (Auto) 1.0 x10^3/uL (1.0-4.8) Monocytes # (Auto) 0.7 x10^3/uL (0.0-1.1) Eosinophils # (Auto) 0.5 x10^3/uL (0.0-0.7) Basophils # (Auto) 0.1 x10^3/uL (0.0-0.2) Current Medications: Meds: Current Medications Medications (Trade) Dose Ordered Sig/Svetlana Route PRN Reason Start Time Stop Time Status Last Admin Dose Admin Warfarin Sodium (Coumadin) 2.5 mg 1X WARF ONCE PO 11/22/19 16:00 11/22/19 16:01 DC 11/22/19 17:17 I have reviewed the current psychotropics carefully including drug interactions. Risk benefit ratio favors no change other than as noted in my dictated progress note. Diagnosis: Problems: (1) Major depress, sev w/ psych (2) Bipolar disorder with psychotic features (3) Major depressive disorder with psychotic features (4) Anxiety disorder (5) Psychosis, atypical (6) Impulse control disorder MARIANN CUEVAS MD Nov 23, 2019 07:35
--- NOTE | 2019-11-23 08:03 | PDOC ---
Exam Note: Mazin Note: This is a late entry for 11/20/2019. Currently, the unit is shutdown for any admissions and discharges as directed by the Centers for Disease Control (CDC) and the [facility] ([facility]) because of Coronavirus (COVID-19) exposure on the unit. S/O: This note covers elements not covered in my initial note. The patient was reviewed with nursing staff, reviewed the chart and TeleHealth Services provided for this date for the patient. Discussed with BENITA Barnard. Slept 7-3/4 hours. ROS: No CV, , Pulmonary, Eye system symptoms on review. MSE: Reasonably oriented. Speech is coherent. Abstraction fair. Computation impaired. Language function intact. Attention span is short. Mood and affect less grandiose, less labile. Labs: Reviewed. Imp: Schizoaffective disorder, bipolar type, mixed with psychotic features. Anxiety disorder unspecified. Impulse control disorder unspecified. Plan: No change from initial note. Assessment: Vital Signs/I&O: Vital Signs Date Time Temp Pulse Resp B/P (MAP) Pulse Ox O2 Delivery O2 Flow Rate FiO2 11/23/19 06:01 97.6 81 18 105/71 (82) 95 11/21/19 06:19 Room Air I & O 11/22/19 11/22/19 11/23/19 15:00 23:00 07:00 Intake Total 720 ml 360 ml Balance 720 ml 360 ml Labs: Laboratory Tests Test 11/23/19 06:28 White Blood Count 6.9 x10^3/uL (4.0-11.0) Red Blood Count 5.05 x10^6/uL (4.30-5.70) Hemoglobin 15.7 g/dL (13.0-17.5) Hematocrit 48.4 % (39.0-53.0) Mean Corpuscular Volume 96 fL (79-100) Mean Corpuscular Hemoglobin 31 pg (25-35) Mean Corpuscular Hemoglobin Concent 32 g/dL (31-37) Red Cell Distribution Width 14.7 % (11.5-14.5) H Platelet Count 127 x10^3/uL (140-400) L Neutrophils (%) (Auto) 67 % (31-73) Lymphocytes (%) (Auto) 14 % (24-48) L Monocytes (%) (Auto) 10 % (0-9) H Eosinophils (%) (Auto) 8 % (0-3) H Basophils (%) (Auto) 1 % (0-3) Neutrophils # (Auto) 4.6 x10^3uL (1.8-7.7) Lymphocytes # (Auto) 1.0 x10^3/uL (1.0-4.8) Monocytes # (Auto) 0.7 x10^3/uL (0.0-1.1) Eosinophils # (Auto) 0.5 x10^3/uL (0.0-0.7) Basophils # (Auto) 0.1 x10^3/uL (0.0-0.2) Current Medications: Meds: Current Medications Medications (Trade) Dose Ordered Sig/Svetlana Route PRN Reason Start Time Stop Time Status Last Admin Dose Admin Warfarin Sodium (Coumadin) 2.5 mg 1X WARF ONCE PO 11/22/19 16:00 11/22/19 16:01 DC 11/22/19 17:17 I have reviewed the current psychotropics carefully including drug interactions. Risk benefit ratio favors no change other than as noted in my dictated progress note. Diagnosis: Problems: (1) Major depress, sev w/ psych (2) Bipolar disorder with psychotic features (3) Major depressive disorder with psychotic features (4) Anxiety disorder (5) Psychosis, atypical (6) Impulse control disorder MARIANN CUEVAS MD Nov 23, 2019 08:03
[2019-11-23 08:09] LABS: ALBUMIN 3.1 g/dL (3.4-5.0); ALBUMIN/GLOBULIN RATIO 0.8 (1.0-1.7); ALK PHOS 76 U/L (46-116); ALT (SGPT) 32 U/L (16-63); ANION GAP 8 (6-14); AST (SGOT) 32 U/L (15-37); BLOOD UREA NITROGEN 34 mg/dL (8-26); BUN/CREATININE RATIO 20 (6-20); CARBON DIOXIDE 31 mmol/L (21-32); CHLORIDE 103 mmol/L (98-107); CREATININE 1.7 mg/dL (0.7-1.3); GLUCOSE 106 mg/dL (70-99); POTASSIUM 4.9 mmol/L (3.5-5.1); SODIUM 142 mmol/L (136-145); TOTAL BILIRUBIN 0.5 mg/dL (0.2-1.0)
[2019-11-23] MEDS: ZIPRASIDONE 60 MG CAPSULE. PO SCH ×2 (08:28→20:08)
[2019-11-23] MEDS: POTASSIUM CHLORIDE 20 MEQ TABLET.ER. PO SCH ×2 (08:28→20:08)
[2019-11-23] MEDS: DIVALPROEX ER 500 MG TAB.ER.24H PO SCH ×2 (08:28→20:08)
[2019-11-23] MEDS: GABAPENTIN 300 MG CAPSULE. PO SCH ×4 (08:28→20:08)
[2019-11-23] MEDS: CHOLECALCIFEROL (VITAMIN D3) 50,000 UNIT CAPSULE PO SCH (08:28)
[2019-11-23] MEDS: metFORMIN 500 MG TABLET PO SCH (08:28)
[2019-11-23] MEDS: ASPIRIN 81 MG TAB.CHEW PO SCH (08:28)
[2019-11-23] MEDS: FUROSEMIDE 40 MG TABLET PO SCH ×2 (08:29→17:40)
[2019-11-23] MEDS: METOPROLOL SUCC 24HR ER 50 MG TAB.ER.24H. PO SCH (08:29)
[2019-11-23] MEDS: CETIRIZINE HCL 10 MG TABLET PO SCH (08:29)
[2019-11-23] MEDS: FAMOTIDINE 20 MG TABLET PO SCH ×2 (08:29→20:08)
--- NOTE | 2019-11-23 08:32 | PDOC ---
Exam Note: Mazin Note: This is a late entry for 11/21/2019. Currently, the unit is shutdown for any admissions and discharges as directed by the Centers for Disease Control (CDC) and the [facility] ([facility]) because of Coronavirus (COVID-19) exposure on the unit. S/O: This note covers elements not covered in my initial note. The patient was reviewed with nursing staff, reviewed the chart and TeleHealth Services provided for this date for the patient. Slept 6 hours per nursing report. ROS: No CV, , Pulmonary, Eye system symptoms on review. MSE: Reasonably oriented. Speech is coherent. Abstraction fair. Computation impaired. Language function intact. Attention span is short. Mood and affect less grandiose, less labile. Labs: Reviewed. Imp: Schizoaffective disorder, bipolar type, mixed with psychotic features. Anxiety disorder unspecified. Impulse control disorder unspecified. Plan: No change from initial note. Assessment: Vital Signs/I&O: Vital Signs Date Time Temp Pulse Resp B/P (MAP) Pulse Ox O2 Delivery O2 Flow Rate FiO2 11/23/19 08:29 81 105/71 11/23/19 06:01 97.6 18 95 11/21/19 06:19 Room Air I & O 11/22/19 11/22/19 11/23/19 15:00 23:00 07:00 Intake Total 720 ml 360 ml Balance 720 ml 360 ml Labs: Laboratory Tests Test 11/23/19 06:28 White Blood Count 6.9 x10^3/uL (4.0-11.0) Red Blood Count 5.05 x10^6/uL (4.30-5.70) Hemoglobin 15.7 g/dL (13.0-17.5) Hematocrit 48.4 % (39.0-53.0) Mean Corpuscular Volume 96 fL (79-100) Mean Corpuscular Hemoglobin 31 pg (25-35) Mean Corpuscular Hemoglobin Concent 32 g/dL (31-37) Red Cell Distribution Width 14.7 % (11.5-14.5) H Platelet Count 127 x10^3/uL (140-400) L Neutrophils (%) (Auto) 67 % (31-73) Lymphocytes (%) (Auto) 14 % (24-48) L Monocytes (%) (Auto) 10 % (0-9) H Eosinophils (%) (Auto) 8 % (0-3) H Basophils (%) (Auto) 1 % (0-3) Neutrophils # (Auto) 4.6 x10^3uL (1.8-7.7) Lymphocytes # (Auto) 1.0 x10^3/uL (1.0-4.8) Monocytes # (Auto) 0.7 x10^3/uL (0.0-1.1) Eosinophils # (Auto) 0.5 x10^3/uL (0.0-0.7) Basophils # (Auto) 0.1 x10^3/uL (0.0-0.2) Prothrombin Time 20.2 SEC (9.4-11.4) H Prothrombin Time INR 1.9 (0.9-1.1) H Current Medications: Meds: Current Medications Medications (Trade) Dose Ordered Sig/Svetlana Route PRN Reason Start Time Stop Time Status Last Admin Dose Admin Warfarin Sodium (Coumadin) 2.5 mg 1X WARF ONCE PO 11/22/19 16:00 11/22/19 16:01 DC 11/22/19 17:17 I have reviewed the current psychotropics carefully including drug interactions. Risk benefit ratio favors no change other than as noted in my dictated progress note. Diagnosis: Problems: (1) Major depress, sev w/ psych (2) Bipolar disorder with psychotic features (3) Major depressive disorder with psychotic features (4) Anxiety disorder (5) Psychosis, atypical (6) Impulse control disorder MARIANN CUEVAS MD Nov 23, 2019 08:32
[2019-11-23 08:59] LABS: VAL ACID 75 mcg/mL (50-100)
[2019-11-23] MEDS: NYSTATIN TOPICAL POWDER 15GM BOTTLE. TP SCH ×2 (09:00→20:08)
--- NOTE | 2019-11-23 09:00 | PDOC ---
Exam Note: Mazin Note: This is a late entry for 11/22/2019. Currently, the unit is shutdown for any admissions and discharges as directed by the Centers for Disease Control (CDC) and the [facility] ([facility]) because of Coronavirus (COVID-19) exposure on the unit. S/O: This note covers elements not covered in my initial note. The patient was reviewed with nursing staff, reviewed the chart and TeleHealth Services provided for this date for the patient. He was seen on a video-conferencing call coordinated with Javier JOY, nursing staff on the unit whose appropriately protected with personal protective equipment and mask on the unit. Patient slept 7-1/4 hours previous night. His QTc on the EKG is 431 ms on Geodon 60 mg twice a day. We will repeat a valproic acid level morning of 11/23/2019. I had a lengthy conference with the patient at the videoconferencing call. ROS: No CV, , Pulmonary, Eye system symptoms on review. MSE: Reasonably oriented. Speech is coherent. Abstraction fair. Computation impaired. Language function intact. Attention span is short. Mood and affect labile. Labs: Reviewed. Imp: Unchanged from initial note. Plan: No change from initial note. Assessment: Vital Signs/I&O: Vital Signs Date Time Temp Pulse Resp B/P (MAP) Pulse Ox O2 Delivery O2 Flow Rate FiO2 11/23/19 08:29 81 105/71 11/23/19 06:01 97.6 18 95 11/21/19 06:19 Room Air I & O 11/22/19 11/22/19 11/23/19 15:00 23:00 07:00 Intake Total 720 ml 360 ml Balance 720 ml 360 ml Labs: Laboratory Tests Test 11/23/19 06:28 White Blood Count 6.9 x10^3/uL (4.0-11.0) Red Blood Count 5.05 x10^6/uL (4.30-5.70) Hemoglobin 15.7 g/dL (13.0-17.5) Hematocrit 48.4 % (39.0-53.0) Mean Corpuscular Volume 96 fL (79-100) Mean Corpuscular Hemoglobin 31 pg (25-35) Mean Corpuscular Hemoglobin Concent 32 g/dL (31-37) Red Cell Distribution Width 14.7 % (11.5-14.5) H Platelet Count 127 x10^3/uL (140-400) L Neutrophils (%) (Auto) 67 % (31-73) Lymphocytes (%) (Auto) 14 % (24-48) L Monocytes (%) (Auto) 10 % (0-9) H Eosinophils (%) (Auto) 8 % (0-3) H Basophils (%) (Auto) 1 % (0-3) Neutrophils # (Auto) 4.6 x10^3uL (1.8-7.7) Lymphocytes # (Auto) 1.0 x10^3/uL (1.0-4.8) Monocytes # (Auto) 0.7 x10^3/uL (0.0-1.1) Eosinophils # (Auto) 0.5 x10^3/uL (0.0-0.7) Basophils # (Auto) 0.1 x10^3/uL (0.0-0.2) Prothrombin Time 20.2 SEC (9.4-11.4) H Prothrombin Time INR 1.9 (0.9-1.1) H Current Medications: Meds: Current Medications Medications (Trade) Dose Ordered Sig/Svetlana Route PRN Reason Start Time Stop Time Status Last Admin Dose Admin Warfarin Sodium (Coumadin) 2.5 mg 1X WARF ONCE PO 11/22/19 16:00 11/22/19 16:01 DC 11/22/19 17:17 I have reviewed the current psychotropics carefully including drug interactions. Risk benefit ratio favors no change other than as noted in my dictated progress note. Diagnosis: Problems: (1) Major depress, sev w/ psych (2) Bipolar disorder with psychotic features (3) Major depressive disorder with psychotic features (4) Anxiety disorder (5) Psychosis, atypical (6) Impulse control disorder MARIANN CUEVAS MD Nov 23, 2019 09:00
[2019-11-23] MEDS: AMMONIUM LACTATE 12% TOPICAL LOTION 226GM BOTTLE. TP SCH ×2 (10:15→20:09)
[2019-11-23] MEDS ORDERED: WARFARIN 3 MG TABLET. PO ONE (10:36)
[2019-11-23] MEDS ORDERED: WARFARIN 3 MG TABLET. PO SCH (16:00)
[2019-11-23 16:25] VITALS: BP 109/76
[2019-11-23] MEDS: MIRTAZAPINE 7.5 MG TABLET. PO SCH (20:08)
[2019-11-23] MEDS: SIMVASTATIN 40 MG TABLET. PO SCH (20:08)
--- NOTE | 2019-11-23 23:23 | PDOC ---
Exam Note: Mazin Note: S/O: This note covers elements not covered in my initial note. Discussed with nursing staff, reviewed the chart. Discussed with BENITA Herrera. His BUN and cre atinine are elevated. Valproic acid level is 75. He has been much more appropriate, less paranoid, delusional, grandiose. ROS: No CV, , Pulmonary, Eye system symptoms on review. MSE: Reasonably oriented. Speech is coherent. Abstraction fair. Computation impaired. Language function intact. Attention span is short. Mood and affect labile. Labs: Reviewed. Imp: Unchanged from initial note. Plan: We will push fluids. Valproic acid level is therapeutic. We will continue Depakote at current dosage. Adjust as clinically indicated Assessment: Vital Signs/I&O: Vital Signs Date Time Temp Pulse Resp B/P (MAP) Pulse Ox O2 Delivery O2 Flow Rate FiO2 11/23/19 16:25 97.8 85 18 109/76 (87) 100 Room Air I & O 11/22/19 11/22/19 11/23/19 15:00 23:00 07:00 Intake Total 720 ml 360 ml Balance 720 ml 360 ml Labs: Laboratory Tests Test 11/23/19 06:28 White Blood Count 6.9 x10^3/uL (4.0-11.0) Red Blood Count 5.05 x10^6/uL (4.30-5.70) Hemoglobin 15.7 g/dL (13.0-17.5) Hematocrit 48.4 % (39.0-53.0) Mean Corpuscular Volume 96 fL (79-100) Mean Corpuscular Hemoglobin 31 pg (25-35) Mean Corpuscular Hemoglobin Concent 32 g/dL (31-37) Red Cell Distribution Width 14.7 % (11.5-14.5) H Platelet Count 127 x10^3/uL (140-400) L Neutrophils (%) (Auto) 67 % (31-73) Lymphocytes (%) (Auto) 14 % (24-48) L Monocytes (%) (Auto) 10 % (0-9) H Eosinophils (%) (Auto) 8 % (0-3) H Basophils (%) (Auto) 1 % (0-3) Neutrophils # (Auto) 4.6 x10^3uL (1.8-7.7) Lymphocytes # (Auto) 1.0 x10^3/uL (1.0-4.8) Monocytes # (Auto) 0.7 x10^3/uL (0.0-1.1) Eosinophils # (Auto) 0.5 x10^3/uL (0.0-0.7) Basophils # (Auto) 0.1 x10^3/uL (0.0-0.2) Prothrombin Time 20.2 SEC (9.4-11.4) H Prothrombin Time INR 1.9 (0.9-1.1) H Sodium Level 142 mmol/L (136-145) Potassium Level 4.9 mmol/L (3.5-5.1) Chloride Level 103 mmol/L (98-107) Carbon Dioxide Level 31 mmol/L (21-32) Anion Gap 8 (6-14) Blood Urea Nitrogen 34 mg/dL (8-26) H Creatinine 1.7 mg/dL (0.7-1.3) H Estimated GFR (Cockcroft-Gault) 40.0 BUN/Creatinine Ratio 20 (6-20) Glucose Level 106 mg/dL (70-99) H Calcium Level 9.0 mg/dL (8.5-10.1) Total Bilirubin 0.5 mg/dL (0.2-1.0) Aspartate Amino Transferase (AST) 32 U/L (15-37) Alanine Aminotransferase (ALT) 32 U/L (16-63) Alkaline Phosphatase 76 U/L (46-116) Total Protein 7.0 g/dL (6.4-8.2) Albumin 3.1 g/dL (3.4-5.0) L Albumin/Globulin Ratio 0.8 (1.0-1.7) L Valproic Acid Level 75 mcg/mL (50-100) Valproic Acid Last Dose Date 11/22/19 Valproic Acid Last Dose Time 2100 Current Medications: Meds: Current Medications Medications (Trade) Dose Ordered Sig/Svetlana Route PRN Reason Start Time Stop Time Status Last Admin Dose Admin Warfarin Sodium (Coumadin) 3 mg [id number] PO 11/23/19 16:00 11/23/19 17:41 I have reviewed the current psychotropics carefully including drug interactions. Risk benefit ratio favors no change other than as noted in my dictated progress note. Diagnosis: Problems: (1) Major depress, sev w/ psych (2) Bipolar disorder with psychotic features (3) Major depressive disorder with psychotic features (4) Anxiety disorder (5) Psychosis, atypical (6) Impulse control disorder MARIANN CUEVAS MD Nov 23, 2019 23:23
[2019-11-24 06:35] VITALS: BP 99/68
[2019-11-24] MEDS: FAMOTIDINE 20 MG TABLET PO SCH ×2 (08:54→20:50)
[2019-11-24] MEDS: CETIRIZINE HCL 10 MG TABLET PO SCH (08:54)
[2019-11-24] MEDS: FUROSEMIDE 40 MG TABLET PO SCH ×2 (08:54→17:56)
[2019-11-24] MEDS: POTASSIUM CHLORIDE 20 MEQ TABLET.ER. PO SCH ×2 (08:55→20:49)
[2019-11-24] MEDS: DIVALPROEX ER 500 MG TAB.ER.24H PO SCH ×2 (08:55→20:50)
[2019-11-24] MEDS: GABAPENTIN 300 MG CAPSULE. PO SCH ×4 (08:55→20:50)
[2019-11-24] MEDS: ZIPRASIDONE 60 MG CAPSULE. PO SCH ×2 (08:55→20:50)
[2019-11-24] MEDS: METOPROLOL SUCC 24HR ER 50 MG TAB.ER.24H. PO SCH (08:55)
[2019-11-24] MEDS: ASPIRIN 81 MG TAB.CHEW PO SCH (08:55)
[2019-11-24] MEDS: AMMONIUM LACTATE 12% TOPICAL LOTION 226GM BOTTLE. TP SCH ×2 (08:56→20:49)
[2019-11-24] MEDS: NYSTATIN TOPICAL POWDER 15GM BOTTLE. TP SCH ×2 (09:00→20:49)
[2019-11-24] MEDS ORDERED: WARFARIN 2 MG TABLET. PO SCH (16:00)
[2019-11-24 16:29] VITALS: BP 106/73
[2019-11-24] MEDS: MIRTAZAPINE 7.5 MG TABLET. PO SCH (20:50)
[2019-11-24] MEDS: SIMVASTATIN 40 MG TABLET. PO SCH (20:50)
--- NOTE | 2019-11-25 00:02 | PDOC ---
Exam Note: Mazin Note: S/O: This note is a late entry for DOS 11/24/2019 covers elements not covered in my initial note. Discussed the patient with nursing staff, reviewed the chart. In the morning, the patient had treatment team meeting with the entire team nursing staff, social service staff and myself and TeleHealth Services prov ided via audio-visual visit in the evening coordinated with Javier JOY. Patients sleeping average 5-6 hours, slept 2 hours previous night. Appetite 50%. He has been calm, cooperative, compliant with medications. We had lengthy discussion at treatment team meeting and then I discussed this with the patient about getting involved with the [facility] once he returns home to [facility]. He states he still drives, takes care of his own needs ROS: No CV, , Pulmonary, Eye system symptoms on review. MSE: Reasonably oriented. Speech is coherent. Abstraction fair. Computation impaired. Language function intact. Mood and affect lability is improved. Labs: Reviewed. Imp: Bipolar disorder mixed with psychotic features. Impulse control disorder. Rest unchanged. Plan: Continue psychotropics mentioned including Depakote 500 mg b.i.d., Neurontin 300 mg q.i.d., trazodone, Remeron 7.5 mg h.s., Zyprexa p.r.n, Geodon 60 mg b.i.d. EKG QTc was unremarkable. Patient is agreeable to attending the [facility] after I discussed with him in th evening. Assessment: Vital Signs/I&O: VS - Last 72 Hours, by Label Date Time Temp Pulse Resp B/P (MAP) Pulse Ox O2 Delivery O2 Flow Rate FiO2 11/24/19 16:29 98.7 86 18 106/73 (84) 97 Room Air 11/24/19 08:55 90 99/68 11/24/19 06:35 98.6 90 20 99/68 (78) 94 Room Air 11/23/19 16:25 97.8 85 18 109/76 (87) 100 Room Air 11/23/19 08:29 81 105/71 11/23/19 06:01 97.6 81 18 105/71 (82) 95 11/22/19 17:18 65 113/60 11/22/19 15:42 97.3 65 18 113/60 (77) 94 3/24/20 08:50 89 106/62 11/22/19 05:50 97.8 89 20 106/62 (77) 98 Vital Signs Date Time Temp Pulse Resp B/P (MAP) Pulse Ox O2 Delivery O2 Flow Rate FiO2 11/24/19 16:29 98.7 86 18 106/73 (84) 97 Room Air I & O 11/24/19 11/24/19 11/25/19 15:00 23:00 07:00 Intake Total 1080 ml 0 ml Balance 1080 ml 0 ml Current Medications: Meds: Current Medications Medications (Trade) Dose Ordered Sig/Svetlana Route PRN Reason Start Time Stop Time Status Last Admin Dose Admin Warfarin Sodium (Coumadin) 2 mg SuThSa PO 11/24/19 16:00 11/24/19 17:57 I have reviewed the current psychotropics carefully including drug interactions. Risk benefit ratio favors no change other than as noted in my dictated progress note. Diagnosis: Problems: (1) Major depress, sev w/ psych (2) Bipolar disorder with psychotic features (3) Major depressive disorder with psychotic features (4) Anxiety disorder (5) Psychosis, atypical (6) Impulse control disorder MARIANN CUEVAS MD Nov 25, 2019 00:02
[2019-11-25 05:53] VITALS: BP 132/85
--- NOTE | 2019-11-25 08:30 | TX PLAN ---
Interdisciplinary Tx Plan Admission Information Nov 08, 2019 at 05:45 Legal Status (on Admission): Voluntary DPOA/Guardian Name: Pt is his own guardian Contact Verified Code Status: Full Code Allergies: Coded Allergies: No Known Drug Allergies (Unverified , 11/08/19) Estimated Length of Stay: 20 Diagnoses Reasons for Admission: Aggressive, Delusions, Poor impulse control Problem in Patient's Words: "For the last 2 weeks, I have been feeling demonized and doing things completely out of character". Problems Active Problems: Acording to the intake, pt was throwing things, breaking windows, delusional (seeing demons) and reports that house is possessed. Inactive Problems: Pt. is compliant with medication and cooperative with cares. Discharge Criteria Discharge Criteria: Able meet basic life need, Able to meet health needs, OP monitor medical prob, Adequate arrangements @DC, Verbal commit aftercare, Adequate self-care, Verbal commit med comply, Improved behavior, Improved mood/thought Preliminary Discharge Plan Preliminary DC Plan: Current Living Arrange. Special Precautions Special Precautions: Agitation/Assault Fall Risk: Low Initial D/C Plan Pt. will return home with services. Identified Discharge Needs: Outpt mental health services PACE Program Identified Problems/Hx/Goals Objectives/Short-Term Goals Short Term Goals: Dec. Hallucination/Delus, Dec. Outbursts, Medication Stabilization, Promote Coping Skill Short Term Goals in Patient's: I just want to feel better and get to where I can safely go home. 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 Pt reports that he also worked 10 years at the [employer] for extra income. Pt just recently retired within the last 3-4 years. Education: Pt graduated from with his Bachelors in Business (General Studies) and received a minor in Sociology Community Follow-up Follow Up Psychiatric Services PACE Program Treatment Plan Explained Patient/Digital Traffic Coordinator had this treatment plan explained to him/her as indicated by the signature below and has been given the opportunity to ask questions and make suggestions: Date: Patient/Digital Traffic Coordinator Signature: SUSANA HODGSON Nov 25, 2019 08:30
[2019-11-25 08:55] LABS: BASO % 0 % (0-3); EOS # 0.4 x10^3/uL (0.0-0.7); EOS % 3 % (0-3); HEMATOCRIT 50.7 % (39.0-53.0); HEMOGLOBIN 16.5 g/dL (13.0-17.5); LYMPH # 0.4 x10^3/uL (1.0-4.8); LYMPH % 3 % (24-48); MEAN CORPUSCULAR HEMOGLOBIN 31 pg (25-35); MEAN CORPUSCULAR HGB CONC 33 g/dL (31-37); MEAN CORPUSCULAR VOLUME 94 fL (79-100); MONO % 8 % (0-9); NEUT # 11.1 x10^3uL (1.8-7.7); NEUT % 86 % (31-73); PLATELET COUNT 191 x10^3/uL (140-400); RED BLOOD COUNT 5.41 x10^6/uL (4.30-5.70); RED CELL DISTRIBUTION WIDTH 14.8 % (11.5-14.5)
[2019-11-25] MEDS: GABAPENTIN 300 MG CAPSULE. PO SCH ×2 (09:00→13:00)
[2019-11-25] MEDS: FUROSEMIDE 40 MG TABLET PO SCH (09:00)
[2019-11-25] MEDS: METOPROLOL SUCC 24HR ER 50 MG TAB.ER.24H. PO SCH (09:00)
[2019-11-25] MEDS: DIVALPROEX ER 500 MG TAB.ER.24H PO SCH (09:00)
[2019-11-25] MEDS: CETIRIZINE HCL 10 MG TABLET PO SCH (09:00)
[2019-11-25] MEDS: ZIPRASIDONE 60 MG CAPSULE. PO SCH (09:00)
[2019-11-25] MEDS: FAMOTIDINE 20 MG TABLET PO SCH (09:00)
[2019-11-25] MEDS: ASPIRIN 81 MG TAB.CHEW PO SCH (09:00)
[2019-11-25] MEDS: POTASSIUM CHLORIDE 20 MEQ TABLET.ER. PO SCH (09:00)
[2019-11-25 09:15] LABS: ALBUMIN 3.2 g/dL (3.4-5.0); ALBUMIN/GLOBULIN RATIO 0.7 (1.0-1.7); CALCIUM 9.3 mg/dL (8.5-10.1); CREATININE 1.7 mg/dL (0.7-1.3); POTASSIUM 4.6 mmol/L (3.5-5.1); TOTAL BILIRUBIN 0.5 mg/dL (0.2-1.0); TOTAL PROTEIN 7.6 g/dL (6.4-8.2)
[2019-11-25 09:23] VITALS: BP 108/64
--- NOTE | 2019-11-25 09:54 | RAD ---
Examination: CHEST AP ONLY History: Elevated temperature Comparison: None. Findings: AP portable upright frontal view of the chest was obtained. The patient is rotated limiting assessment. Preliminary pulmonary inflation also is evident. The cardiomediastinal silhouette is normal. Lungs are clear. There is no pneumothorax. No pleural effusion is appreciated. No acute bone abnormality. IMPRESSION: No acute cardiopulmonary process. Electronically signed by: Gil Lr MD (11/25/2019 9:51 AM) [id number]
[2019-11-25 10:26] LABS: INFLUENZA A PATIENT NEGATIVE (NEGATIVE); INFLUENZA B PATIENT NEGATIVE (NEGATIVE)
[2019-11-25 10:27] VITALS: BP 115/73
[2019-11-25] MEDS ORDERED: IV NORMAL SALINE 500ML 500 ML IV ONE (10:30)
[2019-11-25 10:42] VITALS: BP 129/79
[2019-11-25] MEDS ORDERED: PIP/TAZO PER PHARMACY MC PRN (10:45)
[2019-11-25] MEDS ORDERED: VANCOMYCIN PER PHARMACY MC PRN (10:45)
[2019-11-25] MEDS: NYSTATIN TOPICAL POWDER 15GM BOTTLE. TP SCH (11:00)
[2019-11-25] MEDS: AMMONIUM LACTATE 12% TOPICAL LOTION 226GM BOTTLE. TP SCH (11:00)
[2019-11-25 11:24] LABS: CLARITY,URINE CLEAR; COLOR,URINE YELLOW
[2019-11-25 11:25] LABS: BILIRUBIN,URINE NEG (NEG); GLUCOSE,URINE 100 mg/dL (NEG)
[2019-11-25 11:27] LABS: NITRITE,URINE NEG (NEG)
[2019-11-25] MEDS ORDERED: PIPERACILLIN/TAZOBACTAM 3.375 GM in IV NORMAL SALINE 50ML 50 ML IV SCH (11:30)
[2019-11-25 11:33] LABS: BACTERIA,URINE FEW /HPF (0-FEW); WBC,URINE RARE /HPF (0-4)
[2019-11-25] MEDS ORDERED: VANCOMYCIN 2 GM in IV NORMAL SALINE 500ML 500 ML IV ONE (12:00)
[2019-11-25] MEDS ORDERED: PIPE3.375 IV (12:01)
[2019-11-25] MEDS ORDERED: ACET325T21 PO (12:04)
[2019-11-25] MEDS ORDERED: AMMO385C5 TP (12:05)
[2019-11-25] MEDS ORDERED: CHOL500021 PO (12:10)
[2019-11-25] MEDS ORDERED: DIVA500T4 PO (12:11)
[2019-11-25] MEDS ORDERED: FAMO20TA5 PO (12:12)
[2019-11-25] MEDS ORDERED: MAG355OR44 PO (12:13)
[2019-11-25] MEDS ORDERED: MAGN24003 PO (12:14)
[2019-11-25] MEDS ORDERED: METH57CR17 TP (12:15)
[2019-11-25] MEDS ORDERED: MIRT7.5T8 PO (12:16)
[2019-11-25] MEDS ORDERED: NYST15PO9 TP (12:17)
[2019-11-25] MEDS ORDERED: POTA20TA4 PO (12:19)
[2019-11-25] MEDS ORDERED: Vancomycin IV (12:21)
[2019-11-25] MEDS ORDERED: TRAZ-120 PO (12:23)
[2019-11-25] MEDS ORDERED: ZIPR40CA2 PO (12:23)
[2019-11-25 13:06] VITALS: BP 110/63
--- NOTE | 2019-11-27 08:46 | PDOC ---
Exam Note: Mazin Note: S/O: This note is a late entry for DOS 11/25/2019 covers elements not covered in my initial note. Discussed the patient with nursing staff, reviewed the chart. I met with the patient via audio-visual visit in the evening coordinated with Javier JOY. ROS: No CV, , Pulmonary, Eye system symptoms on review. MSE: Reasonably oriented. Speech is coherent. Abstraction fair. Computation impaired. Language function intact. Attention span short. Mood and affect improved. Labs: Reviewed. Imp: Bipolar disorder mixed with psychotic features. Impulse control disorder. Rest unchanged. Plan: Unchanged. Assessment: Vital Signs/I&O: Vital Signs Date Time Temp Pulse Resp B/P (MAP) Pulse Ox O2 Delivery O2 Flow Rate FiO2 11/25/19 13:06 98.1 123 110/63 (79) 95 Room Air 11/25/19 10:42 16 Current Medications: I have reviewed the current psychotropics carefully including drug interactions. Risk benefit ratio favors no change other than as noted in my dictated progress note. Diagnosis: Problems: (1) Major depress, sev w/ psych (2) Bipolar disorder with psychotic features (3) Major depressive disorder with psychotic features (4) Anxiety disorder (5) Psychosis, atypical (6) Impulse control disorder MARIANN CUEVAS MD Nov 27, 2019 08:45
--- NOTE | 2019-11-27 22:00 | DS ---
DATE OF DISCHARGE: 11/25/2019 DISCHARGE SUMMARY AND PSYCHIATRIC PROGRESS NOTE This late entry date of service 11/24 covers elements not covered in my initial note. REASON FOR ADMISSION: Please refer to the admission history for details. Briefly, the patient is a 69-year-old male referred to us from [facility], where he presented from home on account of marked psychotic symptoms. He was throwing things, breaking windows, seeing demons. He was delusional, believed his house was possessed. He lives in his house by himself, has a long history of schizophrenia, chronic, undifferentiated versus schizoaffective disorder, bipolar type, and had not been in any ongoing psychiatric treatment for some time prior to this admission. Behaviors were deemed dangerous, unmanageable, referred for inpatient psychiatric stabilization. SIGNIFICANT FINDINGS AND CLINICAL COURSE: Following admission, the patient was seen daily individually by myself from a psychiatric standpoint, medical followup per Dr. Chapin. I have reviewed records from [facility] and his other psychiatric records which were quite extensive and reflective of his diagnosis of schizophrenia versus schizoaffective disorder, bipolar type. The patient was extremely labile, disruptive, paranoid, throwing things all over his room and into the hallways for several days following admission. Adjustments were made in his psychotropics and he seemed ____ to a combination of Geodon 60 mg b.i.d.; Zyprexa p.r.n.; trazodone 50 mg at bedtime p.r.n., may repeat x 1 for insomnia. Remeron 7.5 mg at bedtime, Depakote 500 mg b.i.d. with a therapeutic valproic acid level at 75, gabapentin 300 mg 4 times a day. Gradually, the patient's mood appeared to improve. He is pleasant, well oriented, very appropriate and cooperative. However, at this stage, the unit was placed on a locked down due to exposure to the COVID-19 from a staff member. On 11/24, the patient spiked the fever of 102.5. Dr. Chapin transferred him to the ICU with questionable cellulitis. He also appeared more confused and was having tremors prior to his transition and for several days prior to this, he had done so much better from a psychiatric standpoint with stabilization of his mood, psychosis and was extremely pleasant and cooperative. Prior to discharge on 11/24, no CV, , pulmonary, eye system symptoms on review. MENTAL STATUS EXAM: Oriented to himself and situation. Speech is coherent, has some latency. Abstraction fair, computation impaired, language function intact, attention span short. Mood and affect labile. LABORATORY DATA: Reviewed. No suicidal or homicidal ideation prior to discharge. CONDITION ON DISCHARGE: Improved from a psychiatric standpoint other than the one day prior to discharge when he appeared more confused consequent to his nonspecific infection and being febrile. FINAL DIAGNOSES: Schizoaffective disorder, bipolar type, mixed with psychotic features; schizophrenia, chronic, undifferentiated with acute exacerbation, in partial remission; anxiety disorder, unspecified; impulse control disorder, unspecified; possible cellulitis, rule out COVID-[address] Chapin. Rest unchanged from admission. DISCHARGE MEDICATIONS: Please refer to the MRAD. DISCHARGE INSTRUCTIONS: Psychiatric and medical followup in the ICU per Dr. Chapin. Time for discharge day management greater than 30 minutes. MARIANN CUEVAS MD DR: DEEDEE/sofía JOB#: [id number] / [id number]
== END 2019-11-25 13:05 | disposition short-term general hospital (02) | DRG 885 ==
LOC: GEROPSY 05:45
PROVIDERS: ADMIT Psychiatry & Neurology Psychiatry; ATTEND Psychiatry & Neurology Psychiatry
DX: F31.64 Bipolar disorder, current episode mixed, severe, with psychotic features (principal); I50.22 Chronic systolic (congestive) heart failure; R45.851 Suicidal ideations; E78.5 Hyperlipidemia, unspecified; E11.40 Type 2 diabetes mellitus with diabetic neuropathy, unspecified; I11.0 Hypertensive heart disease with heart failure; E66.9 Obesity, unspecified; I25.10 Atherosclerotic heart disease of native coronary artery without angina pectoris; F63.9 Impulse disorder, unspecified; G31.84 Mild cognitive impairment of uncertain or unknown etiology; I87.8 Other specified disorders of veins; N40.0 Benign prostatic hyperplasia without lower urinary tract symptoms; Z79.01 Long term (current) use of anticoagulants; Z86.73 Personal history of transient ischemic attack (TIA), and cerebral infarction without residual deficits
CPT/HCPCS: 36415; 70450; 71045; 80048; 80053; 80061; 80164; 81001; 82140; 82306; 82607; 83036; 83540; 83550; 83605; 83735; 84436; 84443; 84480; 85025; 85610; 86592; 87070; 87804; 87880; 93005; J2543; J3370; J7040

== ENCOUNTER 2019-11-25 13:10 | Inpatient (IN) | payer MEDICARE ==
[~2019-11-25] VITALS: Ht 167.6 cm; Wt 98.1 kg
[~2019-11-25 13:10] MED LIST: ACET325T21 PO; AMMO385C5 TP; ASPI-630 PO; CETI10TA16 PO; CHOL500021 PO; DIVA500T4 PO; FAMO20TA5 PO; FURO40TA4 PO; GABA-586 PO; LISI10TA2 PO; MAG355OR44 PO; MAGN24003 PO; METF10007 PO; METH57CR17 TP; METO50TA29 PO; MIRT7.5T8 PO; NYST15PO9 TP; OLAN5TAB5 PO; PIPE3.375 IV; POTA20TA4 PO; SIMV40TA18 PO; TRAZ-120 PO; TRIA15CR50 TP; Vancomycin IV; WARF2TAB96 PO; WARF3TAB50 PO; ZIPR40CA2 PO
[2019-11-25] MEDS ORDERED: IV NORMAL SALINE 1,000ML 1,000 ML IV ONE (13:30)
[2019-11-25 13:35] VITALS: BP 96/62
[2019-11-25] MEDS ORDERED: PIP/TAZO PER PHARMACY MC PRN (14:30)
[2019-11-25] MEDS ORDERED: TRIAMCINOLONE ACETONIDE 0.5% TOPICAL CREAM 15GM TUBE. TP PRN (15:30)
[2019-11-25] MEDS ORDERED: traZODone 50 MG TABLET. PO PRN (15:30)
[2019-11-25] MEDS ORDERED: MAG HYDROX/AL HYDROX/SIMETH 30 ML ORAL.SUSP PO PRN (15:30)
[2019-11-25] MEDS ORDERED: GABAPENTIN 300 MG CAPSULE. PO PRN (15:30)
[2019-11-25] MEDS: FUROSEMIDE 40 MG TABLET PO SCH (16:00)
[2019-11-25] MEDS ORDERED: WARFARIN 3 MG TABLET. PO SCH ×2 (16:00→16:44)
--- NOTE | 2019-11-25 16:06 | HP ---
ADMIT DATE: 11/25/2019 HISTORY OF PRESENT ILLNESS: The patient is a 69-year-old male patient who was transferred from [facility] on account of hypotension, fever. He had lab work, which included his white cell count had risen to 13,000. His lactic acid was also high at 2.9 and we did a chest x-ray, which was unremarkable and showed that the patient is irritated, limiting assessment, primary pulmonary infiltration, also is evidenced. The cardiomediastinal silhouette is normal. Lungs are clear. There is no pneumothorax, no pleural effusion is appreciated, no acute bony abnormalities. However, the patient has bilateral lower extremity erythema. They are hot to touch with some blisters that are opened already and very dry and thick skin and therefore the patient was transferred to ICU with diagnosis of sepsis, likely due to bilateral lower extremity cellulitis. We did send blood and urine for culture and sensitivity. We started him on IV vancomycin as well as Zosyn. The patient himself is also complaining of pain in his legs, but denied any other complaint. PAST MEDICAL HISTORY: Significant for hypertension, hyperlipidemia. He is known to have history of cerebrovascular accident, heart failure with reduced ejection fraction, class.2 obesity due to excessive calories, body mass index of 36-39. He is also known to have type 2 diabetes mellitus, diabetic neuropathy and bilateral lower extremity venous stasis. PAST SURGICAL HISTORY: Significant for suprapubic cystostomy and suprapubic cystostomy tube placement and transurethral resection of the prostate, underwent cardiac catheterization and was found to have moderate coronary artery disease with high-grade 80% stenosis in the mid left anterior descending. He also underwent biopsy of the prostate and transrectal ultrasound. FAMILY HISTORY: Noncontributory. SOCIAL HISTORY: Single, never , has no children. He does not smoke, does not drink alcohol or use any drugs. MEDICATIONS: He is currently on following medications: He is on cetirizine 10 mg once a day. He is on Zosyn 3.375 grams IV q. 6 hourly, Coumadin 2 mg every , Thursday, Thursday and 3 mg every Thursday, Thursday, Thursday and Thursday, simvastatin 40 mg at bedtime, metoprolol succinate 50 mg once a day, aspirin 81 mg once a day, BenGay greaseless cream applied topically 4 times a day, Tylenol 650 mg every 6 hours, divalproex sodium 500 mg extended release twice a day, gabapentin 300 mg 4 times a day, gabapentin 300 mg as needed at bedtime, mirtazapine 7.5 mg at bedtime, trazodone 50 mg at bedtime, olanzapine 2.5 mg every 2 hours, ziprasidone 60 mg twice a day. He is on potassium chloride 20 mEq twice a day, furosemide 40 mg twice a day. He is on magnesium hydroxide for milk of magnesia 30 mL p.o. daily p.r.n. for constipation, famotidine 20 mg twice a day. He is on Nystatin powder applied topically twice a day and triamcinolone acetonide applied topically twice a day, ammonium lactate 1 application twice a day for dry scaly skin. He is on cholecalciferol 50,000 International Units once a week and vancomycin 2 grams IV daily. REVIEW OF SYSTEMS: As per history of present illness. PHYSICAL EXAMINATION: GENERAL: On arrival to Acute Care in [facility], he looked well and was clearly in no apparent respiratory distress. He was somewhat pale, but no jaundice or cyanosis. No lymphadenopathy. No thyromegaly. No jugular venous distention. No lower limb edema. VITAL SIGNS: His heart rate was 124, blood pressure was 96/62, temperature was 100.4, respiratory rate was 26 and oxygen saturation was 94%. HEAD, EYES, EARS, NOSE AND THROAT: Showed normocephalic, atraumatic. NECK: Supple. HEART: Showed normal first and second heart sounds. No gallop or murmur. CHEST: Clear to auscultation. No crepitation or rhonchi. ABDOMEN: Distended, soft, nontender. NEUROLOGIC: He was awake, alert, responding appropriately. All his cranial nerves were intact. EXTREMITIES: He moves extremities without difficulty. LABORATORY DATA: Showed white cell count of 13,000, hemoglobin 16.5, hematocrit 50.7, MCV 94 and platelet count of 191,000 with normal manual differential. His chemistry showed serum sodium 144, potassium 4.6, chloride 103, bicarbonate 33, anion gap of 8, BUN 27, creatinine 1.7, estimated GFR was 40 mL per minute. His glucose was 108. His calcium was 9.3. His prothrombin time was 25.7, INR of 2.5. Urinalysis showed the urine was yellow, clear with a pH of 8, specific gravity of 1.015. There was large amount of protein, moderate amount of glucose. There were a small amount of ketones, moderate amount of blood, negative for nitrite. The urine was negative for leukocyte esterase. There were 3-5 rbc's, rare wbc's and no bacteria. His valproic acid was 75 mcg/mL. His influenza A, B and group A streptococcus were all negative. His chest x-ray showed that the pulmonary inflation is evident. The cardiomediastinal silhouette is normal. Lungs are clear. There is no pneumothorax, no pleural effusion is appreciated, no acute bone abnormality. ASSESSMENT AND PLAN The patient was transferred to [address] [place] [address] on telemetry bed with sepsis, most likely due to bilateral lower extremity cellulitis. He has leukocytosis, lactic acidosis with serum lactic acid up to 3 micromole per liter. He has also tachycardia and mild hypotension. We sent blood for culture and sensitivity and started him on vancomycin and Zosyn, elevated legs and continue to monitor his blood sugar, also continued his Coumadin and monitor his prothrombin time and INR and adjust Coumadin to maintain INR between 2-2.5. RAINE HSU MD DR: PAMELA/sofía JOB#: [id number] / [id number]
[2019-11-25] MEDS ORDERED: MAGNESIUM HYDROXIDE 2,400 MG/30 ML ORAL.SUSP. PO PRN (16:15)
[2019-11-25] MEDS ORDERED: METHYL SALICYLATE/MENTHOL TOPICAL OINTMENT 57GM TUBE. TP PRN (16:15)
[2019-11-25] MEDS: VANCOMYCIN PER PHARMACY MC PRN (16:19)
[2019-11-25] MEDS ORDERED: METOPROLOL SUCC 24HR ER 50 MG TAB.ER.24H. PO ONE (17:15)
[2019-11-25] MEDS: GABAPENTIN 300 MG CAPSULE. PO SCH ×2 (17:57→21:10)
[2019-11-25] MEDS ORDERED: PIPERACILLIN/TAZOBACTAM 3.375 GM VIAL IV SCH (18:00)
[2019-11-25] MEDS: ACETAMINOPHEN 325 MG TABLET PO PRN (18:10)
[2019-11-25] MEDS: PIPERACILLIN/TAZOBACTAM 3.375 GM in IV NORMAL SALINE 50ML 50 ML IV SCH (18:21)
[2019-11-25 18:27] VITALS: BP 113/75
[2019-11-25 20:00] VITALS: BP 100/60
[2019-11-25] MEDS: MIRTAZAPINE 7.5 MG TABLET. PO SCH (21:10)
[2019-11-25] MEDS: FAMOTIDINE 20 MG TABLET PO SCH (21:10)
[2019-11-25] MEDS: POTASSIUM CHLORIDE 20 MEQ TABLET.ER. PO SCH (21:10)
[2019-11-25] MEDS: DIVALPROEX ER 500 MG TAB.ER.24H PO SCH (21:11)
[2019-11-25] MEDS: ZIPRASIDONE 60 MG CAPSULE. PO SCH (21:11)
[2019-11-25] MEDS: IV NORMAL SALINE 1,000ML 1,000 ML IV SCH (21:11)
[2019-11-25] MEDS: AMMONIUM LACTATE 12% TOPICAL LOTION 226GM BOTTLE. TP SCH (21:12)
[2019-11-25] MEDS: CLOTRIMAZOLE 1% TOPICAL CREAM 30GM TUBE. TP SCH (21:12)
[2019-11-25] MEDS: NYSTATIN TOPICAL POWDER 15GM BOTTLE. TP SCH (21:12)
[2019-11-25 22:30] VITALS: BP 104/61
[2019-11-26] VITALS (9 sets, daily range): BP systolic 90–119; BP diastolic 45–70
[2019-11-26] MEDS: PIPERACILLIN/TAZOBACTAM 3.375 GM in IV NORMAL SALINE 50ML 50 ML IV SCH ×5 (00:10→23:33)
[2019-11-26] MEDS: IV NORMAL SALINE 1,000ML 1,000 ML IV SCH ×4 (04:00→23:30)
[2019-11-26 07:02] LABS: HEMATOCRIT 44.5 % (39.0-53.0); HEMOGLOBIN 14.3 g/dL (13.0-17.5); RED BLOOD COUNT 4.71 x10^6/uL (4.30-5.70); RED CELL DISTRIBUTION WIDTH 14.8 % (11.5-14.5); WHITE BLOOD COUNT 14.5 x10^3/uL (4.0-11.0)
[2019-11-26 07:14] LABS: ALBUMIN 2.2 g/dL (3.4-5.0); ALBUMIN/GLOBULIN RATIO 0.6 (1.0-1.7); CALCIUM 7.8 mg/dL (8.5-10.1); CREATININE 1.7 mg/dL (0.7-1.3); POTASSIUM 4.3 mmol/L (3.5-5.1); TOTAL BILIRUBIN 0.5 mg/dL (0.2-1.0)
[2019-11-26] MEDS: ASPIRIN CHEWABLE 81 MG TABLET. PO SCH (08:18)
[2019-11-26] MEDS: DIVALPROEX ER 500 MG TAB.ER.24H PO SCH ×2 (08:19→20:52)
[2019-11-26] MEDS: ZIPRASIDONE 60 MG CAPSULE. PO SCH (08:19)
[2019-11-26] MEDS: GABAPENTIN 300 MG CAPSULE. PO SCH ×4 (08:20→20:53)
[2019-11-26] MEDS: POTASSIUM CHLORIDE 20 MEQ TABLET.ER. PO SCH ×2 (08:20→20:53)
[2019-11-26] MEDS: FUROSEMIDE 40 MG TABLET PO SCH ×2 (08:20→17:10)
[2019-11-26] MEDS: FAMOTIDINE 20 MG TABLET PO SCH ×2 (08:20→20:52)
[2019-11-26] MEDS: METOPROLOL SUCC 24HR ER 50 MG TAB.ER.24H. PO SCH (08:21)
[2019-11-26] MEDS: CETIRIZINE HCL 10 MG TABLET PO SCH (08:21)
[2019-11-26] MEDS: SIMVASTATIN 40 MG TABLET. PO SCH (08:22)
[2019-11-26] MEDS: AMMONIUM LACTATE 12% TOPICAL LOTION 226GM BOTTLE. TP SCH ×2 (08:22→20:54)
[2019-11-26] MEDS: CLOTRIMAZOLE 1% TOPICAL CREAM 30GM TUBE. TP SCH ×2 (08:22→20:54)
[2019-11-26] MEDS: NYSTATIN TOPICAL POWDER 15GM BOTTLE. TP SCH ×2 (08:22→20:52)
[2019-11-26] MEDS ORDERED: VANCOMYCIN IV SCH (09:00)
--- NOTE | 2019-11-26 11:47 | PN ---
DATE: 11/26/2019 SUBJECTIVE: The patient is resting slightly propped up in bed, in no apparent respiratory distress. He seemed to be more lethargic today, although his leg seems to be less erythematous. PHYSICAL EXAMINATION: GENERAL: When I examined him, he looked slightly tachypneic, but there is no pallor, jaundice, cyanosis or thyromegaly. No jugular venous distention. No limb edema. VITAL SIGNS: His heart rate was 112, blood pressure was 106/63, temperature was 99.5, respiratory rate 24 and oxygen saturation was 93%. HEAD, EYES, EARS, NOSE AND THROAT: Showed normocephalic, atraumatic. NECK: Supple. HEART: Showed normal first and second heart sounds. No gallop or murmur. CHEST: Clear to auscultation. No crepitation or rhonchi. ABDOMEN: Distended, soft, nontender. NEUROLOGIC: He seems to be more lethargic today, although arousable. His cranial nerves are intact. He moves upper extremities, to much good extent than lower extremities. SKIN: His leg erythema and dry skin is actually much, much better today. His intake and output were incompletely recorded. LABORATORY DATA: As of this morning, his white cell count was 14,500, hemoglobin 14, hematocrit 44, MCV 95, and platelet count of 141,000. Serum sodium was 145, potassium 4.3, chloride 107, bicarbonate 31, anion gap of 7, BUN 24, creatinine 1.7. His estimated GFR was 40 mL per minute, his glucose 123, calcium was 7.8. Total bilirubin, AST, ALT were normal. Alkaline phosphatase slightly elevated. His total protein 6, albumin 2.2. His prothrombin time was 32.4, INR of 3.1. RAINE HSU MD DR: PAMELA/sofía JOB#: [id number] / [id number]
[2019-11-26] MEDS: VANCOMYCIN 1.5 GM in IV NORMAL SALINE 500ML 500 ML IV SCH (12:30)
[2019-11-26] MEDS: VANCOMYCIN PER PHARMACY MC PRN (12:46)
[2019-11-26] MEDS ORDERED: WARFARIN 2 MG TABLET. PO SCH ×2 (16:00)
[2019-11-26] MEDS: LACTOBACILLUS RHAMNOSUS GG 1 CAPSULE. PO SCH (20:52)
[2019-11-26] MEDS: MIRTAZAPINE 7.5 MG TABLET. PO SCH (20:52)
[2019-11-26] MEDS: ACETAMINOPHEN 325 MG TABLET PO PRN (20:53)
[2019-11-26] MEDS ORDERED: DIGOXIN IV 500 MCG/2 ML AMPUL. IV ONE (22:00)
[2019-11-27] VITALS (11 sets, daily range): BP systolic 95–129; BP diastolic 53–81
[2019-11-27] MEDS: PIPERACILLIN/TAZOBACTAM 3.375 GM in IV NORMAL SALINE 50ML 50 ML IV SCH ×4 (05:35→23:45)
[2019-11-27 07:42] LABS: ALBUMIN 1.9 g/dL (3.4-5.0); ALBUMIN/GLOBULIN RATIO 0.5 (1.0-1.7); CALCIUM 7.7 mg/dL (8.5-10.1); CREATININE 1.6 mg/dL (0.7-1.3); GFR 42.9; POTASSIUM 4.1 mmol/L (3.5-5.1); TOTAL BILIRUBIN 0.4 mg/dL (0.2-1.0)
[2019-11-27] MEDS: LACTOBACILLUS RHAMNOSUS GG 1 CAPSULE. PO SCH ×2 (07:47→20:40)
[2019-11-27] MEDS: CETIRIZINE HCL 10 MG TABLET PO SCH (07:47)
[2019-11-27] MEDS: FAMOTIDINE 20 MG TABLET PO SCH ×2 (07:47→20:40)
[2019-11-27] MEDS: GABAPENTIN 300 MG CAPSULE. PO SCH ×4 (07:47→20:40)
[2019-11-27] MEDS: POTASSIUM CHLORIDE 20 MEQ TABLET.ER. PO SCH ×2 (07:47→20:40)
[2019-11-27] MEDS: FUROSEMIDE 40 MG TABLET PO SCH ×2 (07:48→16:28)
[2019-11-27] MEDS: ASPIRIN CHEWABLE 81 MG TABLET. PO SCH (07:48)
[2019-11-27] MEDS: SIMVASTATIN 40 MG TABLET. PO SCH (07:48)
[2019-11-27] MEDS: METOPROLOL SUCC 24HR ER 50 MG TAB.ER.24H. PO SCH (07:48)
[2019-11-27] MEDS: DIVALPROEX ER 500 MG TAB.ER.24H PO SCH ×2 (07:49→20:40)
[2019-11-27] MEDS: CLOTRIMAZOLE 1% TOPICAL CREAM 30GM TUBE. TP SCH ×2 (07:49→20:42)
[2019-11-27] MEDS: AMMONIUM LACTATE 12% TOPICAL LOTION 226GM BOTTLE. TP SCH ×2 (07:49→20:42)
[2019-11-27] MEDS: NYSTATIN TOPICAL POWDER 15GM BOTTLE. TP SCH ×2 (07:50→20:42)
[2019-11-27 07:54] LABS: HEMATOCRIT 50.3 % (39.0-53.0); HEMOGLOBIN 16.4 g/dL (13.0-17.5); RED BLOOD COUNT 5.33 x10^6/uL (4.30-5.70); RED CELL DISTRIBUTION WIDTH 15.3 % (11.5-14.5); WHITE BLOOD COUNT 13.1 x10^3/uL (4.0-11.0)
[2019-11-27] MEDS: IV NORMAL SALINE 1,000ML 1,000 ML IV SCH ×3 (10:45→23:53)
[2019-11-27 12:34] LABS: VANC TR 8.9 mcg/mL (10.0-20.0)
[2019-11-27] MEDS: VANCOMYCIN 1.5 GM in IV NORMAL SALINE 500ML 500 ML IV SCH (13:00)
[2019-11-27] MEDS: VANCOMYCIN PER PHARMACY MC PRN (15:11)
--- NOTE | 2019-11-27 15:46 | PN ---
DATE: 11/27/2019 SUBJECTIVE: The patient is resting, slightly propped up in bed, in no apparent respiratory distress. He is definitely more awake, alert, responding appropriately, although he still keeps his eyes closed and unable to feed himself. The legs are less swollen and erythema and warmth is much less. PHYSICAL EXAMINATION: GENERAL: When I examined him, he looked well and was clearly in no apparent respiratory distress. No pallor, jaundice, cyanosis or thyromegaly. No jugular venous distention. No lower limb edema. VITAL SIGNS: His heart rate was 79, blood pressure was 124/75, temperature was 98.8, respiratory rate was 16, and oxygen saturation was 100% on room air. HEAD, EYES, EARS, NOSE AND THROAT: Showed normocephalic, atraumatic. NECK: Supple. CARDIAC: Normal first and second heart sounds. No gallop, rub or murmur. CHEST: Clear to auscultation. No crepitation or rhonchi. ABDOMEN: Distended, soft, nontender. NEUROLOGIC: He was more awake, alert, responding appropriately. All cranial nerves are intact. He moves extremities without difficulty, although he continued to be mostly bedbound. The erythema is much less intense in both lower extremities. His intake was 1250, output was 300. LABORATORY DATA: As of this morning, his prothrombin time was 3.5, INR of 3.2. His chemistry this morning showed a serum sodium 144, potassium 4.1, chloride 109, bicarbonate 28, anion gap of 7, BUN 22, creatinine 1.6, estimated GFR was 52 mL per minute. His glucose was 92, calcium was 7.7. Total bilirubin, ALT, alkaline phosphatase were normal. AST slightly elevated. His total CK was 891. Total protein 6, albumin was 1.9. His ammonia was less than 10. His white cell count was 13,000, hemoglobin 16, hematocrit 50, MCV 94 and platelet count of 124,000. His vancomycin trough level was 8.9. ASSESSMENT: 1. Bilateral lower extremity cellulitis, responding well to treatment with IV Zosyn and vancomycin. 2. Sepsis, resolved. His lactic acid is normal. His blood pressure is normalized. The blood culture is still pending at the time of this dictation. The patient has multiple other medical problems including: A. Hypertension. B. Hyperlipidemia. C. Congestive heart failure with reduced ejection fraction. D. Type 2 diabetes mellitus with diabetic neuropathy. E. Bilateral lower extremity venous stasis. I will continue with IV Zosyn and vancomycin. I will hold Coumadin as his prothrombin time continues to be ____. RAINE HSU MD DR: PAMELA/sofía JOB#: [id number] / [id number]
[2019-11-27] MEDS ORDERED: WARFARIN 2 MG TABLET. PO SCH (16:00)
[2019-11-27] MEDS: MIRTAZAPINE 7.5 MG TABLET. PO SCH (20:40)
[2019-11-27] MEDS: ACETAMINOPHEN 325 MG TABLET PO PRN (20:41)
[2019-11-28] VITALS (12 sets, daily range): BP systolic 90–153; BP diastolic 57–90
[2019-11-28] MEDS: PIPERACILLIN/TAZOBACTAM 3.375 GM in IV NORMAL SALINE 50ML 50 ML IV SCH ×4 (05:39→23:51)
[2019-11-28 06:33] LABS: HEMATOCRIT 44.4 % (39.0-53.0); HEMOGLOBIN 14.6 g/dL (13.0-17.5); RED BLOOD COUNT 4.73 x10^6/uL (4.30-5.70); RED CELL DISTRIBUTION WIDTH 15.1 % (11.5-14.5); WHITE BLOOD COUNT 8.3 x10^3/uL (4.0-11.0)
[2019-11-28] MEDS: VANCOMYCIN 1.5 GM in IV NORMAL SALINE 500ML 500 ML IV SCH (06:33)
[2019-11-28 06:35] LABS: CALCIUM 7.5 mg/dL (8.5-10.1); CREATININE 1.2 mg/dL (0.7-1.3); GFR 59.9; POTASSIUM 3.8 mmol/L (3.5-5.1)
[2019-11-28] MEDS: NYSTATIN TOPICAL POWDER 15GM BOTTLE. TP SCH ×2 (09:00→21:05)
[2019-11-28] MEDS: CLOTRIMAZOLE 1% TOPICAL CREAM 30GM TUBE. TP SCH ×2 (09:00→21:05)
[2019-11-28] MEDS: AMMONIUM LACTATE 12% TOPICAL LOTION 226GM BOTTLE. TP SCH ×2 (09:00→21:05)
[2019-11-28] MEDS: GABAPENTIN 300 MG CAPSULE. PO SCH ×4 (10:13→21:07)
[2019-11-28] MEDS: LACTOBACILLUS RHAMNOSUS GG 1 CAPSULE. PO SCH ×2 (10:13→21:06)
[2019-11-28] MEDS: DIVALPROEX ER 500 MG TAB.ER.24H PO SCH ×2 (10:13→21:07)
[2019-11-28] MEDS: FAMOTIDINE 20 MG TABLET PO SCH ×2 (10:13→21:06)
[2019-11-28] MEDS: ASPIRIN CHEWABLE 81 MG TABLET. PO SCH (10:13)
[2019-11-28] MEDS: CETIRIZINE HCL 10 MG TABLET PO SCH (10:13)
[2019-11-28] MEDS: SIMVASTATIN 40 MG TABLET. PO SCH (10:14)
[2019-11-28] MEDS: METOPROLOL SUCC 24HR ER 50 MG TAB.ER.24H. PO SCH (10:14)
[2019-11-28] MEDS: POTASSIUM CHLORIDE 20 MEQ TABLET.ER. PO SCH ×2 (10:14→21:07)
[2019-11-28] MEDS: FUROSEMIDE 40 MG TABLET PO SCH ×2 (10:14→17:15)
--- NOTE | 2019-11-28 12:36 | PN ---
DATE: 11/28/2019 SUBJECTIVE: The patient is resting, slightly propped up in bed, in no apparent distress. He is definitely more awake, alert, was able to feed himself. PHYSICAL EXAMINATION: GENERAL: When I examined him, he looked somewhat pale, no jaundice, cyanosis or thyromegaly. No jugular venous distention. No limb edema. VITAL SIGNS: His heart rate was 83, blood pressure was 130/75, temperature was 97.9, respiratory rate was 18 and oxygen saturation was 97%. HEAD, EYES, EARS, NOSE AND THROAT: Showed normocephalic, atraumatic. NECK: Supple. CARDIAC: Normal first and second heart sounds. No gallop or murmur. CHEST: Clear to auscultation. No crepitation or rhonchi. ABDOMEN: Distended, soft, nontender. NEUROLOGIC: He is definitely more awake, alert, responding appropriately. All cranial nerves are intact. He moves extremities without difficulty. All the erythema of his lower extremities has completely subsided. Continued to have very dry skin. His intake over the last 24 hours was 2627, output was 3300. LABORATORY DATA: As of this morning, his white cell count is down to 8300, hemoglobin 14.6, hematocrit 44, MCV 94 and platelet count of 126,000. His chemistry showed a serum sodium 144, potassium 3.8, chloride 107, bicarbonate 27, anion gap of 10, BUN 19, creatinine 1.2, estimated GFR was 59 mL per minute. His glucose was 94 and calcium was 7.4. His ammonia was less than 10. His CK was slightly up at 891. ASSESSMENT: 1. Bilateral lower extremity cellulitis, responding well to the IV Zosyn and vancomycin. 2. Sepsis, resolved. His lactic acid was normal. His blood pressure is normalized. His ____ cultures are negative. 3. The patient has multiple other medical problems including: A. Hypertension. B. Hyperlipidemia. C. Congestive heart failure with reduced ejection fraction. D. Type 2 diabetes mellitus with diabetic neuropathy. E. Bilateral lower extremity venous stasis. PLAN: To transfer the patient to the floor. I will continue with IV vancomycin and Zosyn and we will continue holding his Coumadin as his INR is still slightly supratherapeutic and we will screen him to see whether he qualifies to go upstairs or to a nursing home facility. RAINE HSU MD DR: PAMELA/sofía JOB#: [id number] / [id number]
[2019-11-28] MEDS: IV NORMAL SALINE 1,000ML 1,000 ML IV SCH ×3 (13:48→23:51)
[2019-11-28] MEDS ORDERED: AMMONIUM LACTATE 12% TOPICAL LOTION 226GM BOTTLE. TP SCH (15:18)
[2019-11-28] MEDS: MIRTAZAPINE 7.5 MG TABLET. PO SCH (21:06)
[2019-11-28] MEDS: ACETAMINOPHEN 325 MG TABLET PO PRN (21:07)
[2019-11-29] VITALS (9 sets, daily range): BP systolic 108–132; BP diastolic 57–94
[2019-11-29 01:17] LABS: VANC TR 12.1 mcg/mL (10.0-20.0)
[2019-11-29] MEDS: VANCOMYCIN 1.5 GM in IV NORMAL SALINE 500ML 500 ML IV SCH (01:38)
[2019-11-29] MEDS: VANCOMYCIN PER PHARMACY MC PRN (01:47)
[2019-11-29] MEDS: PIPERACILLIN/TAZOBACTAM 3.375 GM in IV NORMAL SALINE 50ML 50 ML IV SCH (05:59)
[2019-11-29 06:36] LABS: HEMATOCRIT 44.7 % (39.0-53.0); HEMOGLOBIN 14.9 g/dL (13.0-17.5); RED BLOOD COUNT 4.79 x10^6/uL (4.30-5.70); RED CELL DISTRIBUTION WIDTH 14.7 % (11.5-14.5); WHITE BLOOD COUNT 7.6 x10^3/uL (4.0-11.0)
[2019-11-29 06:47] LABS: CREATININE 1.1 mg/dL (0.7-1.3); GFR 66.2; POTASSIUM 3.6 mmol/L (3.5-5.1)
[2019-11-29] MEDS: LACTOBACILLUS RHAMNOSUS GG 1 CAPSULE. PO SCH ×2 (08:18→19:59)
[2019-11-29] MEDS: SIMVASTATIN 40 MG TABLET. PO SCH (08:19)
[2019-11-29] MEDS: METOPROLOL SUCC 24HR ER 50 MG TAB.ER.24H. PO SCH (08:19)
[2019-11-29] MEDS: FUROSEMIDE 40 MG TABLET PO SCH ×2 (08:19→13:57)
[2019-11-29] MEDS: DIVALPROEX ER 500 MG TAB.ER.24H PO SCH ×2 (08:19→19:59)
[2019-11-29] MEDS: FAMOTIDINE 20 MG TABLET PO SCH ×2 (08:19→19:59)
[2019-11-29] MEDS: GABAPENTIN 300 MG CAPSULE. PO SCH ×4 (08:19→19:59)
[2019-11-29] MEDS: POTASSIUM CHLORIDE 20 MEQ TABLET.ER. PO SCH ×2 (08:20→19:59)
[2019-11-29] MEDS: CETIRIZINE HCL 10 MG TABLET PO SCH (08:20)
[2019-11-29] MEDS: ASPIRIN CHEWABLE 81 MG TABLET. PO SCH (08:20)
[2019-11-29] MEDS: CLOTRIMAZOLE 1% TOPICAL CREAM 30GM TUBE. TP SCH ×2 (08:21→20:00)
[2019-11-29] MEDS: IV NORMAL SALINE 1,000ML 1,000 ML IV SCH (08:21)
[2019-11-29] MEDS: NYSTATIN TOPICAL POWDER 15GM BOTTLE. TP SCH ×2 (08:21→20:00)
[2019-11-29] MEDS: AMMONIUM LACTATE 12% TOPICAL LOTION 226GM BOTTLE. TP SCH ×2 (08:21→20:00)
[2019-11-29] MEDS: CEPHALEXIN 250 MG CAPSULE PO SCH ×2 (13:57→19:58)
[2019-11-29] MEDS ORDERED: WARFARIN 3 MG TABLET. PO SCH (16:00)
--- NOTE | 2019-11-29 16:41 | PN ---
DATE: 11/29/2019 SUBJECTIVE: The patient is resting, slightly propped up in bed, in no apparent respiratory distress. He is awake, alert and lucid, responding appropriately. He is now able to feed himself. PHYSICAL EXAMINATION: GENERAL: When I examined him, he looked well and was clearly in no apparent distress. No pallor, jaundice, cyanosis or thyromegaly. No jugular venous distention. No limb edema. VITAL SIGNS: His heart rate was 74, blood pressure was 132/74, temperature was 97.6, respiratory rate 22, and oxygen saturation was 99%. HEAD, EYES, EARS, NOSE AND THROAT: Normocephalic, atraumatic. NECK: Supple. HEART: Showed normal first and second heart sounds. No gallop or murmur. CHEST: Clear to auscultation. No crepitation or rhonchi. ABDOMEN: Distended, soft, nontender. No guarding or rigidity. No organomegaly. All hernial orifice intact. Bowel sounds normal. NEUROLOGIC: He was definitely more awake, alert, responding appropriately. All cranial nerves are intact. He moves all his extremities without difficulty. All the erythema and swelling of his both lower extremities has largely resolved. He continued to have dry skin. His intake was 2740, output was 2350. LABORATORY DATA: As of this morning, his white cell count was 7600, hemoglobin 14.9, hematocrit 44, MCV 93, and platelet count of 130,000. His chemistry showed a serum sodium 140, potassium 3.6, chloride 106, bicarbonate 26, anion gap of 8, BUN 16, creatinine 1.1, estimated GFR was 66 mL per minute. His glucose was 98 and his CK was down to 208. ASSESSMENT: 1. Severe sepsis with lactic acidosis and hypotension, resolved. 2. Bilateral lower extremity cellulitis, responding well to the IV Zosyn and vancomycin. 3. Acute kidney injury, resolved. His creatinine came down from 1.7 to 1.14. Patient has multiple other medical problems including: A. Hypertension. B. Hyperlipidemia. C. Congestive heart failure with reduced ejection fraction. D. Type 2 diabetes mellitus, diabetic neuropathy. E. Bilateral lower extremity venous stasis. PLAN: Is to discontinue his Miller catheter. We will resume his Coumadin and switch him to Zyvox 600 mg twice a day and discontinue the vancomycin as well the Zosyn. RAINE HSU MD DR: PAMELA/sofía JOB#: [id number] / [id number]
[2019-11-29] MEDS: WARFARIN 2 MG TABLET. PO SCH (17:56)
[2019-11-29] MEDS: MIRTAZAPINE 7.5 MG TABLET. PO SCH (19:59)
[2019-11-30] MEDS: CEPHALEXIN 250 MG CAPSULE PO SCH ×3 (05:30→20:31)
[2019-11-30 05:57] VITALS: BP 110/60
[2019-11-30 06:40] LABS: CALCIUM 8.2 mg/dL (8.5-10.1); CREATININE 1.1 mg/dL (0.7-1.3); GFR 66.2; POTASSIUM 3.3 mmol/L (3.5-5.1)
[2019-11-30] MEDS ORDERED: POTASSIUM CHLORIDE 20 MEQ TABLET.ER. PO ONE (07:45)
[2019-11-30] MEDS: DIVALPROEX ER 500 MG TAB.ER.24H PO SCH ×2 (07:55→20:30)
[2019-11-30] MEDS: FAMOTIDINE 20 MG TABLET PO SCH ×2 (07:55→20:30)
[2019-11-30] MEDS: ASPIRIN CHEWABLE 81 MG TABLET. PO SCH (07:55)
[2019-11-30] MEDS: POTASSIUM CHLORIDE 20 MEQ TABLET.ER. PO SCH ×2 (07:55→20:30)
[2019-11-30] MEDS: LACTOBACILLUS RHAMNOSUS GG 1 CAPSULE. PO SCH ×2 (07:56→20:30)
[2019-11-30] MEDS: METOPROLOL SUCC 24HR ER 50 MG TAB.ER.24H. PO SCH (07:56)
[2019-11-30] MEDS: CETIRIZINE HCL 10 MG TABLET PO SCH (07:56)
[2019-11-30] MEDS: SIMVASTATIN 40 MG TABLET. PO SCH (07:56)
[2019-11-30] MEDS: CLOTRIMAZOLE 1% TOPICAL CREAM 30GM TUBE. TP SCH ×2 (07:57→20:31)
[2019-11-30] MEDS: GABAPENTIN 300 MG CAPSULE. PO SCH ×4 (07:57→20:30)
[2019-11-30] MEDS: FUROSEMIDE 40 MG TABLET PO SCH ×2 (07:57→17:26)
[2019-11-30] MEDS: AMMONIUM LACTATE 12% TOPICAL LOTION 226GM BOTTLE. TP SCH ×2 (07:57→20:31)
[2019-11-30] MEDS: NYSTATIN TOPICAL POWDER 15GM BOTTLE. TP SCH ×2 (07:58→20:31)
[2019-11-30 08:00] VITALS: BP 115/78
--- NOTE | 2019-11-30 10:15 | PN ---
DATE: 11/30/2019 ATTENDING PHYSICIAN: Dr. Chapin and Dr. Flynn. REASON FOR VISIT: The patient was sent here for sepsis. SUBJECTIVE: He is doing well. He is ambulating in the room. He denied any pain or shortness of breath. He has admitted very succinctly he cannot take care of himself at home. He requested an intermediate higher level of care such as a [facility] to bridge the gap going home. He does not want to go there permanently. PHYSICAL EXAMINATION: GENERAL: Overall, he is stable. VITAL SIGNS: Showed a blood pressure of 115/78, pulse is 80 and regular. He was afebrile, oxygen saturation 99% on room air. HEENT: Head is without trauma. Pupils are reactive. Sclerae nonicteric. Oropharynx is clear. NECK: Supple, no bruits. LUNGS: Otherwise clear. CARDIOVASCULAR: Showed regular heart tones. No obvious gallops. Peripheral pulses are palpable and full. ABDOMEN: Soft, scaphoid, nontender, no organomegaly. Bowel sounds are normoactive. EXTREMITIES: Showed significant redness and the brawny discoloration involving both legs extending past his knees. There is a definite line of demarcation. Distal pulses are weak but intact. The skin surface is sloughing with new skin growing in. LABORATORY DATA: Reviewed. Blood cultures reviewed. ASSESSMENT: 1. A 69-year-old gentleman with stasis dermatitis. 2. Underlying sepsis syndrome. 3. He has not had a COVID-19 testing because he has been exposed in the unit and on the senior diagnostic unit. 4. Peripheral vascular disease. 5. Hypertension, stable. PLAN: 1. I have ordered a nasal swab for COVID-19 evaluation. 2. Continue current regimen. 3. We will look into discharged to extended care facility in [place], [place]. manager night has been notified. 4. Diet as tolerated. He is stable otherwise. CHINTAN FLYNN MD DR: KASIA/sofía JOB#: [id number] / [id number] RAINE Castro MD
[2019-11-30 12:10] VITALS: BP 122/79
[2019-11-30] MEDS ORDERED: CHOLECALCIFEROL (VITAMIN D3) 50,000 UNIT CAPSULE PO SCH (16:00)
[2019-11-30] MEDS: WARFARIN 2 MG TABLET. PO SCH (17:26)
[2019-11-30 17:30] VITALS: BP 113/71
[2019-11-30] MEDS: MIRTAZAPINE 7.5 MG TABLET. PO SCH (20:30)
[2019-11-30 23:49] VITALS: BP 104/61
[2019-12-01] MEDS: CEPHALEXIN 250 MG CAPSULE PO SCH ×3 (05:22→20:05)
[2019-12-01 06:02] VITALS: BP 122/64
[2019-12-01 06:04] LABS: CALCIUM 8.3 mg/dL (8.5-10.1); CREATININE 1.1 mg/dL (0.7-1.3); GFR 66.2; POTASSIUM 3.6 mmol/L (3.5-5.1)
[2019-12-01] MEDS: GABAPENTIN 300 MG CAPSULE. PO SCH ×4 (07:30→20:05)
[2019-12-01] MEDS: FUROSEMIDE 40 MG TABLET PO SCH ×2 (07:30→17:28)
[2019-12-01] MEDS: METOPROLOL SUCC 24HR ER 50 MG TAB.ER.24H. PO SCH (07:30)
[2019-12-01] MEDS: CETIRIZINE HCL 10 MG TABLET PO SCH (07:30)
[2019-12-01] MEDS: CLOTRIMAZOLE 1% TOPICAL CREAM 30GM TUBE. TP SCH ×2 (07:31→20:05)
[2019-12-01] MEDS: DIVALPROEX ER 500 MG TAB.ER.24H PO SCH ×2 (07:31→20:04)
[2019-12-01] MEDS: POTASSIUM CHLORIDE 20 MEQ TABLET.ER. PO SCH ×2 (07:31→20:04)
[2019-12-01] MEDS: NYSTATIN TOPICAL POWDER 15GM BOTTLE. TP SCH ×2 (07:31→20:06)
[2019-12-01] MEDS: LACTOBACILLUS RHAMNOSUS GG 1 CAPSULE. PO SCH ×2 (07:31→20:04)
[2019-12-01] MEDS: FAMOTIDINE 20 MG TABLET PO SCH ×2 (07:31→20:05)
[2019-12-01] MEDS: SIMVASTATIN 40 MG TABLET. PO SCH (07:31)
[2019-12-01] MEDS: ASPIRIN CHEWABLE 81 MG TABLET. PO SCH (07:31)
[2019-12-01] MEDS: AMMONIUM LACTATE 12% TOPICAL LOTION 226GM BOTTLE. TP SCH ×2 (07:31→20:05)
[2019-12-01 07:49] VITALS: BP 130/76
--- NOTE | 2019-12-01 10:53 | PN ---
DATE: 12/01/2019 SUBJECTIVE: No new complaints. He denies any pains, fevers, chills, or nausea. He is still wanting to go to a subacute facility, preferably in [place], [place]. OBJECTIVE FINDINGS: VITAL SIGNS: He is afebrile. Blood pressure and vital signs are quite stable. LUNGS: Clear. CARDIOVASCULAR: Showed regular heart tones. No gallops. ABDOMEN: Soft, good bowel sounds. EXTREMITIES: Showed no cyanosis. He has brawny discoloration of his legs below the knees. There is new skin tissue that is forming, small areas of open wound still oozing, no new active infections. His distal pulses are marginal. ASSESSMENT: A 69-year-old gentleman with: 1. Stasis dermatitis, improving. 2. Underlying sepsis syndrome, improved. 3. Pending COVID-19 testing because he has been exposed on the unit. 4. Peripheral vascular disease. 5. Essential hypertension, stable. PLAN: 1. We are awaiting results of his COVID-19 swab sent yesterday. 2. Continue current regimen as prescribed. 3. Eventual discharge to facility in [place] when we have information and a place lined up. CHINTAN FLYNN MD DR: KASIA/sofía JOB#: [id number] / [id number]
[2019-12-01 11:00] VITALS: BP 131/78
[2019-12-01 15:00] VITALS: BP 128/69
[2019-12-01] MEDS ORDERED: WARFARIN 2 MG TABLET. PO SCH (16:00)
[2019-12-01] MEDS: WARFARIN 2 MG TABLET. PO SCH (17:28)
[2019-12-01] MEDS: ACETAMINOPHEN 325 MG TABLET PO PRN (20:05)
[2019-12-01] MEDS: MIRTAZAPINE 7.5 MG TABLET. PO SCH (20:05)
[2019-12-01 20:26] VITALS: BP 140/74
[2019-12-01 23:30] VITALS: BP 134/63
[2019-12-02] MEDS: CEPHALEXIN 250 MG CAPSULE PO SCH ×3 (04:41→20:15)
[2019-12-02 06:32] LABS: CALCIUM 8.4 mg/dL (8.5-10.1); CREATININE 1.1 mg/dL (0.7-1.3); GFR 66.2; POTASSIUM 4.1 mmol/L (3.5-5.1)
[2019-12-02 07:00] VITALS: BP 136/70
[2019-12-02] MEDS: SIMVASTATIN 40 MG TABLET. PO SCH (09:00)
[2019-12-02] MEDS: CLOTRIMAZOLE 1% TOPICAL CREAM 30GM TUBE. TP SCH ×2 (09:00→20:15)
[2019-12-02] MEDS: AMMONIUM LACTATE 12% TOPICAL LOTION 226GM BOTTLE. TP SCH ×2 (09:00→20:15)
[2019-12-02] MEDS: NYSTATIN TOPICAL POWDER 15GM BOTTLE. TP SCH ×2 (09:00→20:16)
[2019-12-02] MEDS: FAMOTIDINE 20 MG TABLET PO SCH ×2 (11:08→20:14)
[2019-12-02] MEDS: FUROSEMIDE 40 MG TABLET PO SCH ×2 (11:08→16:50)
[2019-12-02] MEDS: ASPIRIN CHEWABLE 81 MG TABLET. PO SCH (11:08)
[2019-12-02] MEDS: POTASSIUM CHLORIDE 20 MEQ TABLET.ER. PO SCH ×2 (11:08→20:15)
[2019-12-02] MEDS: LACTOBACILLUS RHAMNOSUS GG 1 CAPSULE. PO SCH ×2 (11:09→20:14)
[2019-12-02] MEDS: METOPROLOL SUCC 24HR ER 50 MG TAB.ER.24H. PO SCH (11:09)
[2019-12-02] MEDS: DIVALPROEX ER 500 MG TAB.ER.24H PO SCH ×2 (11:09→20:15)
[2019-12-02] MEDS: GABAPENTIN 300 MG CAPSULE. PO SCH ×4 (11:09→20:15)
[2019-12-02] MEDS: CETIRIZINE HCL 10 MG TABLET PO SCH (11:09)
[2019-12-02] MEDS ORDERED: METOPROLOL SUCC 24HR ER 50 MG TAB.ER.24H. PO SCH (11:40)
--- NOTE | 2019-12-02 12:02 | PN ---
DATE: 12/02/2019 ATTENDING PHYSICIAN: Dr. Chapin and Dr. Flynn. SUBJECTIVE: No new complaints. He is eating well. He is inquiring about his disposition. I explained to him we are still waiting on the COVID-19 swab test as well as the various facility in [place] that he wished to go to. OBJECTIVE FINDINGS: VITAL SIGNS: He is afebrile. Resting heart rate is about 115 per minute. He is asymptomatic. It appears to be sinus tachycardia. His blood pressure is 136/70, room air saturation 95%. LABORATORY STUDIES: Unremarkable on 11/29/2019. The COVID-19 swab is still pending. HEENT: Normal. LUNGS: Clear. CARDIOVASCULAR: Showed regular heart tones. ABDOMEN: Soft. EXTREMITIES: Showed stasis dermatitis. There is new skin healing over. No open sores. Swelling is down significantly. ASSESSMENT: 1. A 69-year-old gentleman with stasis dermatitis, improved. 2. Underlying sepsis syndrome, resolved. 3. Pending COVID-19 testing because he was exposed on the unit. 4. Peripheral vascular disease. 5. Essential hypertension. 6. Asymptomatic tachycardia at rest. PLAN: 1. Increase Lopressor to 100 mg daily. 2. Awaiting results of COVID-19 swab. 3. To subacute rehab when facility is lined up. CHINTAN FLYNN MD DR: KASIA/sofía JOB#: [id number] / [id number] RAINE Castro MD
[2019-12-02] MEDS: WARFARIN 2.5 MG TABLET. PO SCH (16:50)
[2019-12-02 20:00] VITALS: BP 130/70
[2019-12-02] MEDS: MIRTAZAPINE 7.5 MG TABLET. PO SCH (20:15)
[2019-12-02] MEDS: ACETAMINOPHEN 325 MG TABLET PO PRN (20:15)
[2019-12-02 23:18] VITALS: BP 129/69
[2019-12-03] MEDS: CEPHALEXIN 250 MG CAPSULE PO SCH ×3 (05:30→20:24)
[2019-12-03 06:14] VITALS: BP 129/69
[2019-12-03 06:35] LABS: CALCIUM 8.7 mg/dL (8.5-10.1); CREATININE 1.2 mg/dL (0.7-1.3); GFR 59.9
[2019-12-03 07:00] VITALS: BP 132/60
[2019-12-03] MEDS: POTASSIUM CHLORIDE 20 MEQ TABLET.ER. PO SCH ×2 (08:11→20:24)
[2019-12-03] MEDS: LACTOBACILLUS RHAMNOSUS GG 1 CAPSULE. PO SCH ×2 (08:11→20:24)
[2019-12-03] MEDS: DIVALPROEX ER 500 MG TAB.ER.24H PO SCH ×2 (08:11→20:27)
[2019-12-03] MEDS: SIMVASTATIN 40 MG TABLET. PO SCH (08:11)
[2019-12-03] MEDS: ASPIRIN CHEWABLE 81 MG TABLET. PO SCH (08:12)
[2019-12-03] MEDS: CETIRIZINE HCL 10 MG TABLET PO SCH (08:12)
[2019-12-03] MEDS: METOPROLOL SUCC 24HR ER 50 MG TAB.ER.24H. PO SCH (08:12)
[2019-12-03] MEDS: FAMOTIDINE 20 MG TABLET PO SCH ×2 (08:12→20:27)
[2019-12-03] MEDS: GABAPENTIN 300 MG CAPSULE. PO SCH ×4 (08:12→20:26)
[2019-12-03] MEDS: NYSTATIN TOPICAL POWDER 15GM BOTTLE. TP SCH ×2 (08:14→20:27)
[2019-12-03] MEDS: CLOTRIMAZOLE 1% TOPICAL CREAM 30GM TUBE. TP SCH ×2 (08:14→20:27)
[2019-12-03] MEDS: AMMONIUM LACTATE 12% TOPICAL LOTION 226GM BOTTLE. TP SCH ×2 (08:14→20:27)
[2019-12-03] MEDS: FUROSEMIDE 40 MG TABLET PO SCH ×2 (08:16→16:15)
--- NOTE | 2019-12-03 09:51 | PN ---
DATE: 12/03/2019 ATTENDING PHYSICIAN: Dr. Chapin and Dr. Flynn. SUBJECTIVE: No new complaints. He is having minor questions regarding whether or not the hospital stay will be paid for. I told him most likely would, but we will have to refer to the business office regarding what his responsibilities. OBJECTIVE FINDINGS: VITAL SIGNS: He is afebrile, resting heart rate is improved down to 62 per minute, temperature 97.9, oxygen saturation 99% on room air. COVID-19 swab is still pending unfortunately. HEENT: Head is without trauma. Pupils are reactive. Sclerae nonicteric. Oropharynx is clear. NECK: Supple, no bruits. LUNGS: Clear. CARDIOVASCULAR: Showed regular heart tones. ABDOMEN: Soft, nontender, no organomegaly. Bowel sounds are normoactive. EXTREMITIES: Showed less edema. There is marked stasis dermatitis extending from mid thigh down. There are still many excoriations, but the skin is sloughing off. New skin has grown out and the infection is under control. ASSESSMENT: 1. A 69-year-old gentleman with stasis dermatitis, improved. 2. Underlying sepsis syndrome, resolved. 3. Pending COVID-19 testing because he was exposed to the virus on the unit. 4. Peripheral vascular disease. 5. Essential hypertension. 6. Asymptomatic tachycardia, improved with increased dose of beta saniya. PLAN: 1. Continue Lopressor as ordered. 2. Await results of COVID-19 swab. 3. Subacute rehab when we have 100% certainty that he does not have a viral infection. CHINTAN FLYNN MD DR: KASIA/sofía JOB#: [id number] / [id number]
[2019-12-03 15:09] VITALS: BP 199/99
[2019-12-03] MEDS: WARFARIN 2.5 MG TABLET. PO SCH (16:15)
[2019-12-03] MEDS: MIRTAZAPINE 7.5 MG TABLET. PO SCH (20:23)
[2019-12-03 21:29] VITALS: BP 129/63
[2019-12-04] MEDS: CEPHALEXIN 250 MG CAPSULE PO SCH ×3 (05:51→20:48)
[2019-12-04 07:00] VITALS: BP 97/55
[2019-12-04] MEDS: LACTOBACILLUS RHAMNOSUS GG 1 CAPSULE. PO SCH ×2 (08:28→20:48)
[2019-12-04] MEDS: FAMOTIDINE 20 MG TABLET PO SCH ×2 (08:28→20:48)
[2019-12-04] MEDS: DIVALPROEX ER 500 MG TAB.ER.24H PO SCH ×2 (08:29→20:49)
[2019-12-04] MEDS: FUROSEMIDE 40 MG TABLET PO SCH ×2 (08:29→16:48)
[2019-12-04] MEDS: METOPROLOL SUCC 24HR ER 50 MG TAB.ER.24H. PO SCH (08:29)
[2019-12-04] MEDS: GABAPENTIN 300 MG CAPSULE. PO SCH ×4 (08:29→20:48)
[2019-12-04] MEDS: CETIRIZINE HCL 10 MG TABLET PO SCH (08:29)
[2019-12-04] MEDS: ASPIRIN CHEWABLE 81 MG TABLET. PO SCH (08:29)
[2019-12-04] MEDS: SIMVASTATIN 40 MG TABLET. PO SCH (08:30)
[2019-12-04] MEDS: CLOTRIMAZOLE 1% TOPICAL CREAM 30GM TUBE. TP SCH ×2 (08:30→20:50)
[2019-12-04] MEDS: POTASSIUM CHLORIDE 20 MEQ TABLET.ER. PO SCH ×2 (08:31→20:49)
[2019-12-04] MEDS: NYSTATIN TOPICAL POWDER 15GM BOTTLE. TP SCH ×2 (08:31→20:50)
[2019-12-04] MEDS: AMMONIUM LACTATE 12% TOPICAL LOTION 226GM BOTTLE. TP SCH ×2 (08:31→20:50)
--- NOTE | 2019-12-04 11:03 | PN ---
DATE: 12/04/2019 ATTENDING PHYSICIANS: Dr. Chapin and Dr. Flynn. SUBJECTIVE: No new complaints. He is doing well. He is still very indecisive regarding what he wants to do. He initially stated he wanted to go to rehab. Today, he thought about going home, then he comes right back within a minute and tells me I cannot manage at home, so therefore, we are still waiting for rehab facility in [place] to accept him. We did know as of last night that his COVID-19 swab was negative. He was able to go to the shower and shower independently. OBJECTIVE FINDINGS: VITAL SIGNS: His blood pressure and vital signs are quite stable. BP is 129/63, oxygen saturation 99% on room air, temperature 98.0 degrees Fahrenheit, pulse 80 and regular. HEENT: Head is without trauma. Pupils are reactive. Sclerae are nonicteric. Oropharynx is clear. NECK: Supple. No bruits identified. LUNGS: Clear. ABDOMEN: Soft. Good bowel sounds. EXTREMITIES: Showed stasis dermatitis sustaining down both thighs. New skin is growing. Excoriations noted. Old skin is sloughing off. There is no redness and erythema. The brawny discoloration is permanent. ASSESSMENT: 1. A 69-year-old gentleman with stasis dermatitis, improved. 2. Sepsis syndrome, stable. 3. COVID-19 status is negative now. 4. Peripheral vascular disease. 5. Essential hypertension. 6. Tachycardia, resolved. PLAN: 1. I have moved him out of the ICU because his COVID-19 status is negative. 2. Continue Lopressor as ordered. 3. Continue oral antibiotics. 4. We shall discharge him when the subacute facility is able to take him tomorrow. CHINTAN FLYNN MD DR: KASIA/sofía JOB#: [id number] / [id number]
[2019-12-04 11:20] VITALS: BP 133/88
[2019-12-04 15:26] VITALS: BP 109/66
[2019-12-04] MEDS: WARFARIN 2.5 MG TABLET. PO SCH (16:48)
[2019-12-04 19:37] VITALS: BP 107/69
[2019-12-04] MEDS: MIRTAZAPINE 7.5 MG TABLET. PO SCH (20:48)
[2019-12-05] MEDS: CEPHALEXIN 250 MG CAPSULE PO SCH ×3 (05:27→20:22)
[2019-12-05 05:40] VITALS: BP 117/79
[2019-12-05] MEDS: POTASSIUM CHLORIDE 20 MEQ TABLET.ER. PO SCH ×2 (08:07→20:23)
[2019-12-05] MEDS: GABAPENTIN 300 MG CAPSULE. PO SCH ×4 (08:07→20:22)
[2019-12-05] MEDS: FUROSEMIDE 40 MG TABLET PO SCH ×2 (08:07→16:45)
[2019-12-05] MEDS: ASPIRIN CHEWABLE 81 MG TABLET. PO SCH (08:07)
[2019-12-05] MEDS: SIMVASTATIN 40 MG TABLET. PO SCH (08:07)
[2019-12-05] MEDS: LACTOBACILLUS RHAMNOSUS GG 1 CAPSULE. PO SCH ×2 (08:07→20:23)
[2019-12-05] MEDS: FAMOTIDINE 20 MG TABLET PO SCH ×2 (08:07→20:22)
[2019-12-05] MEDS: CETIRIZINE HCL 10 MG TABLET PO SCH (08:07)
[2019-12-05] MEDS: AMMONIUM LACTATE 12% TOPICAL LOTION 226GM BOTTLE. TP SCH ×2 (08:08→20:24)
[2019-12-05] MEDS: CLOTRIMAZOLE 1% TOPICAL CREAM 30GM TUBE. TP SCH ×2 (08:08→20:24)
[2019-12-05] MEDS: NYSTATIN TOPICAL POWDER 15GM BOTTLE. TP SCH ×2 (08:08→20:24)
[2019-12-05] MEDS: METOPROLOL SUCC 24HR ER 50 MG TAB.ER.24H. PO SCH (08:08)
[2019-12-05] MEDS: DIVALPROEX ER 500 MG TAB.ER.24H PO SCH ×2 (08:08→20:23)
[2019-12-05 11:05] VITALS: BP 130/80
--- NOTE | 2019-12-05 14:03 | DS ---
DATE OF DISCHARGE: 12/05/2019 ATTENDING PHYSICIAN: Dr. Chapin. FINAL DISCHARGE DIAGNOSES: 1. Stasis dermatitis, legs. 2. Sepsis syndrome, resolved. 3. Hyperlipidemia. 4. History of prostate cancer. 5. Impulse control disorder. HISTORY OF PRESENT ILLNESS: The patient is a 69-year-old gentleman from the senior diagnostic unit, who was admitted here with fevers, chills and sepsis type syndrome, elevated lactate levels. The source of infection was from his legs. He has significant stasis dermatitis with open wound. PHYSICAL EXAMINATION: Please see the dictated note. PERTINENT LABORATORY AND X-RAY STUDIES: Admission hemoglobin was 14.9 g/dL with white count of 14,500, repeated was down to 7600. Chemistry panel shows stable BUN and creatinine, electrolytes, creatinine is 1.2 mg/dL, nonfasting blood sugar 110. COVID-19 serology on the unit was interpreted as negative. Blood cultures were nondiagnostic at 72 hours. COURSE IN THE HOSPITAL: The patient was admitted, went to the ICU because of exposure to potential COVID-19 coronavirus. He had a swab obtained. This was reported back negative at the end of the week. He received 5 full days of intravenous vancomycin, eventually switched to Keflex. He did well. Diuresis was entertained and he had improvement in the swelling. Eucerin cream applied for the skin and his legs were improved. He requested a short stint at a rehab facility, arrangements were then made for the patient to go to [facility] for subacute rehabilitation. DISCHARGE MEDICATIONS: Include 7 more days of cephalexin 500 mg t.i.d. In addition, he will continue his Lac-Hydrin topically, Zyrtec 10 mg daily, Depakote 500 mg b.i.d. for mood stabilizer, Lasix 40 mg b.i.d., Neurontin 300 mg q.i.d., Maalox p.r.n., metoprolol 50 mg p.o. daily, potassium 20 mEq b.i.d., Zocor 40 mg daily, trazodone 50 mg at bedtime and Geodon 60 mg b.i.d. for mood stabilizer. For now, we stopped his famotidine, extra Neurontin and aspirin. He should be on Coumadin 2.5 mg p.o. daily along with the 7 more days of cephalexin. PROGNOSIS Guarded. DISCHARGE CONDITION: He was discharged from our hospital in stable condition with explicit instructions on followup care. CHINTAN FLYNN MD DR: KASIA/sofía JOB#: [id number] / [id number] RAINE Castro MD
[2019-12-05 15:17] VITALS: BP 109/72
[2019-12-05] MEDS: WARFARIN 2.5 MG TABLET. PO SCH (16:45)
[2019-12-05 19:04] VITALS: BP 108/77
[2019-12-05] MEDS: MIRTAZAPINE 7.5 MG TABLET. PO SCH (20:23)
[2019-12-06] MEDS: CEPHALEXIN 250 MG CAPSULE PO SCH ×2 (05:49→13:04)
[2019-12-06 06:12] VITALS: BP 111/75
[2019-12-06] MEDS: GABAPENTIN 300 MG CAPSULE. PO SCH ×2 (07:51→13:04)
[2019-12-06] MEDS: FAMOTIDINE 20 MG TABLET PO SCH (07:51)
[2019-12-06] MEDS: ASPIRIN CHEWABLE 81 MG TABLET. PO SCH (07:52)
[2019-12-06] MEDS: CETIRIZINE HCL 10 MG TABLET PO SCH (07:52)
[2019-12-06] MEDS: FUROSEMIDE 40 MG TABLET PO SCH (07:52)
[2019-12-06] MEDS: METOPROLOL SUCC 24HR ER 50 MG TAB.ER.24H. PO SCH (07:52)
[2019-12-06] MEDS: LACTOBACILLUS RHAMNOSUS GG 1 CAPSULE. PO SCH (07:52)
[2019-12-06] MEDS: DIVALPROEX ER 500 MG TAB.ER.24H PO SCH (07:52)
[2019-12-06] MEDS: CLOTRIMAZOLE 1% TOPICAL CREAM 30GM TUBE. TP SCH (07:53)
[2019-12-06] MEDS: POTASSIUM CHLORIDE 20 MEQ TABLET.ER. PO SCH (07:53)
[2019-12-06] MEDS: SIMVASTATIN 40 MG TABLET. PO SCH (07:53)
[2019-12-06] MEDS: AMMONIUM LACTATE 12% TOPICAL LOTION 226GM BOTTLE. TP SCH (07:53)
[2019-12-06] MEDS: NYSTATIN TOPICAL POWDER 15GM BOTTLE. TP SCH (07:53)
[2019-12-06 11:11] VITALS: BP 111/79
== END 2019-12-06 13:00 | DRG 871 ==
LOC: ICU 13:10 → 1 SOUTH 12-04 09:25
PROVIDERS: ADMIT Internal Medicine; ATTEND Internal Medicine
DX: A41.9 Sepsis, unspecified organism (principal); E43 Unspecified severe protein-calorie malnutrition; I50.22 Chronic systolic (congestive) heart failure; L03.115 Cellulitis of right lower limb; L03.116 Cellulitis of left lower limb; N17.9 Acute kidney failure, unspecified; E11.40 Type 2 diabetes mellitus with diabetic neuropathy, unspecified; E11.51 Type 2 diabetes mellitus with diabetic peripheral angiopathy without gangrene; E78.5 Hyperlipidemia, unspecified; F63.9 Impulse disorder, unspecified; I11.0 Hypertensive heart disease with heart failure; I25.10 Atherosclerotic heart disease of native coronary artery without angina pectoris; I87.8 Other specified disorders of veins; R63.3 Feeding difficulties; R65.20 Severe sepsis without septic shock; E66.09 Other obesity due to excess calories; Z85.46 Personal history of malignant neoplasm of prostate; Z86.73 Personal history of transient ischemic attack (TIA), and cerebral infarction without residual deficits; Z68.36 Body mass index [BMI] 36.0-36.9, adult; Z79.899 Other long term (current) drug therapy; Z20.828 Contact with and (suspected) exposure to other viral communicable diseases
CPT/HCPCS: 36415; 80048; 80053; 80202; 82140; 82550; 82947; 85027; 85610; J1160; J2543; J3370; J7040; 97116; 97530; J7030